=== PATIENT | female | born 1975 | race Caucasian/White ===

== ENCOUNTER 2016-11-13 17:06 | Emergency (ER) | payer MEDICAID ==
--- NOTE | 2016-11-13 18:06 | EDM.PDOC ---
ED HPI ENT - General Chief Complaint: ENT Problem Stated Complaint: MOUTH PAIN Time Seen by Provider: 11/13/16 17:40 Source of Information: Reports: Patient, RN, RN notes reviewed History Limitations: Reports: No limitations - History of Present Illness INITIAL COMMENTS - FREE TEXT/NARRATIVE: Patient complains of right lower dental pain x2-3 days getting worse. Today woke with swelling to the right face. Denies fever. History of chronic severe dental decay. Timing/Duration: Reports: Getting worse Severity: severe Location: Reports: mouth (face) Quality: Reports: Ache, Throbbing Improves with: Reports: None Worsens with: Reports: None Associated Symptoms: Reports: no other symptoms - Related Data Allergies/ADRs: Allergies Allergy/AdvReac Type Severity Reaction Status Date / Time No Known Allergies Allergy Verified 10/08/16 10:42 Home Meds: Home Meds Ferrous Sulfate 324 mg PO DAILY 10/08/16 [History] Gabapentin [Neurontin] 800 mg PO TID 10/08/16 [History] Mirtazapine [Mirtazapine] 30 mg PO BEDTIME 10/08/16 [History] buPROPion HCl [buPROPion HCl ER] 200 mg PO BID 10/08/16 [History] oxyCODONE HCl/Acetaminophen [oxyCODONE-Acetaminophen 5-325] 1 tab PO Q6HR PRN [History] Past Medical History - Past Health History Medical/Surgical History: Denies Medical/Surgical History HEENT 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: None Cardiovascular 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: None Respiratory 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: None Gastrointestinal 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: None Genitourinary 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: None 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: Musculoskeletal 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: Other (see below) Other Musculoskeletal History: herniated disk Neurological 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: Seizure (Onset January 2016) Psychiatric 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: Addiction, Depression Endocrine/Metabolic 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: None Hematologic 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: None Immunologic 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: None Oncologic (Cancer) 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: Cervix Dermatologic 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: None - Infectious Disease History Infectious Disease 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: Chicken pox - Past Surgical History Musculoskeletal Surgical 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: Other (see below) (Lumbar surgery) Social & Family History - Family History Family Medical History: Noncontributory Neurological: Reports: Seizure (grandmother) - Tobacco Use Smoking Status *Q: Current Every Day Smoker Years of Tobacco use: 20 Packs/Tins Daily: 0.5 - Caffeine Use Caffeine Use: Reports: Coffee, Soda - Recreational Drug Use Recreational Drug Use: Yes Recreational Drug Use Frequency: Patient Refuses To Answer Recreational Drug Last Use: History of IV drug use - Sexual History Sexual 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: Sexually active - Living Situation & Occupation Living situation: Reports: with significant other Occupation: unemployed ED ROS ENT - Review of Systems Review Of Systems: ROS reveals no pertinent complaints other than HPI. ED EXAM, ENT - Physical Exam Exam: See Below Exam Limited By: No limitations General Appearance: alert, WD/WN, no apparent distress Eye Exam: bilateral eye: normal inspection Ears: normal external exam, normal canal, hearing grossly normal, normal TMs Nose: normal inspection, normal mucousa, no blood Mouth/Throat: Other (Exterior dental decay and missing teeth. Swelling to gums at right mandibular molars without purulent drainage. ) Head: facial swelling (right mandible o infraorbital region with mild erythema, tenderness and increased warmth. ) Neck: lymphadenopathy (R) (cervical.) Neurological: alert, oriented, CN II-XII intact, normal cognition, normal gait, normal reflexes, no motor/sensory deficits Psychiatric: normal affect Course - Vital Signs Last Recorded V/S: See nurses notes for vitals. Departure - Departure Time of Disposition: 18:04 Disposition: Home, Self-Care 01 Condition: good Clinical Impression: Dental abscess, Facial cellulitis Instructions: Dental Abscess, [id number] Forms: ED Department Discharge Additional Instructions: Clindamycin 300mg. Amoxicillin 500mg. Viscus lidocaine 2%. [place] 5mg/325mg. Follow up with dentist tomorrow.
== END 2016-11-13 18:00 | disposition home or self-care (01) ==
LOC: DL.ED 17:06
CPT/HCPCS: 99283

== ENCOUNTER 2017-01-03 21:51 | Emergency (ER) | payer MEDICAID ==
--- NOTE | 2017-01-04 00:26 | EDM.PDOC ---
ED HPI GENERAL MEDICAL PROBLEM - General Chief Complaint: General Stated Complaint: FOOT AND CHEST PAIN Time Seen by Provider: 01/03/17 22:30 Source of Information: Reports: Patient History Limitations: Reports: No limitations - History of Present Illness INITIAL COMMENTS - FREE TEXT/NARRATIVE: c/o pain to right great toe and heel. Hx surgery [address] Villalta. Notes change in drainage more yellow and pain worse, Admits is out of Percocet. Rx should have good through 01/05. 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 Mid-Sternal Chest Pain Score (Numeric/FACES): 3 - Related Data Allergies Allergy/AdvReac Type Severity Reaction Status Date / Time No Known Allergies Allergy Verified 01/03/17 22:20 Home Meds: Home Meds Ferrous Sulfate 324 mg PO DAILY 10/08/16 [History] Gabapentin [Neurontin] 800 mg PO TID 10/08/16 [History] Mirtazapine [Mirtazapine] 30 mg PO BEDTIME 10/08/16 [History] buPROPion HCl [buPROPion HCl ER] 200 mg PO BID 10/08/16 [History] oxyCODONE HCl/Acetaminophen [oxyCODONE-Acetaminophen 5-325] 1 tab PO Q6HR PRN [History] Past Medical History - Past Health History Medical/Surgical History: Denies Medical/Surgical History HEENT 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: None Cardiovascular 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: None Respiratory 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: None Gastrointestinal 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: None Genitourinary 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: None 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: Musculoskeletal 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: Other (see below) Other Musculoskeletal History: herniated disk Neurological 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: Seizure Psychiatric 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: Addiction, Depression Endocrine/Metabolic 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: None Hematologic 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: None Immunologic 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: None Oncologic (Cancer) 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: Cervix Dermatologic 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: None - Infectious Disease History Infectious Disease 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: Chicken pox - Past Surgical History Head Surgeries/Procedures: Reports: None Musculoskeletal Surgical 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: Other (see below) Other Musculoskeletal Surgeries/Procedures:: right foot surgery Social & Family History - Family History Family Medical History: Noncontributory Neurological: Reports: Seizure - Tobacco Use Smoking Status *Q: Current Every Day Smoker Years of Tobacco use: 20 Packs/Tins Daily: 2 - Caffeine Use Caffeine Use: Reports: Coffee, Soda, Tea - Recreational Drug Use Recreational Drug Use: No Recreational Drug Use Frequency: Patient Refuses To Answer Recreational Drug Last Use: History of IV drug use - Sexual History Sexual 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: Sexually active - Living Situation & Occupation Living situation: Reports: with significant other Occupation: unemployed ED ROS GENERAL - Review of Systems Review Of Systems: See Below Constitutional: Reports: fever (last night) Musculoskeletal: Reports: foot pain Skin: Reports: wound (ankle), change in color (redness) ED EXAM, GENERAL - Physical Exam Exam: See Below Exam Limited By: No limitations General Appearance: alert, mild distress Eye Exam: bilateral eye: PERRL Ears: normal external exam Nose: normal inspection Throat/Mouth: Normal inspection Head: atraumatic, normocephalic Respiratory/Chest: no respiratory distress, lungs clear, other (upper chest wall tenderness with palpation) Cardiovascular: normal peripheral pulses, regular rate, rhythm GI/Abdominal: normal bowel sounds, soft, no distention, other (mild epigastric tenderness) Back Exam: normal inspection, full range of motion Extremities: redness (at incision sites of lateral right heel and dorsal great toe.) Neurological: alert, oriented Psychiatric: normal affect, normal mood Skin Exam: Warm, Dry, Erythema (surgical wound), Wound/incision (surgical wound) Course - Vital Signs Last Recorded V/S: Last Vital Signs Temp 99.2 F 01/04/17 00:52 Pulse 86 01/04/17 00:52 Resp 18 01/04/17 00:52 BP 153/78 H 01/04/17 00:52 Pulse Ox 99 01/04/17 00:52 - Orders/Labs/Meds Labs: Laboratory Tests 01/04/17 01/04/17 Range/Units 00:10 00:10 WBC 7.7 (5.0-10.0) 10^3/uL RBC 3.87 L (4.2-5.4) 10^6/uL Hgb 11.3 L (12.0-16.0) g/dL Hct 35.2 L (37.0-47.0) % MCV 91.0 (80-100) fL MCH 29.2 (27.0-34.0) pg MCHC 32.1 L (33.0-35.0) g/dL Plt Count 340 (150-450) 10^3/uL Neut % (Auto) 46.2 (42.2-75.2) % Lymph % (Auto) 33.9 (20.5-50.1) % [place] % (Auto) 13.1 H (2-8) % Eos % (Auto) 6.5 H (1.0-3.0) % Baso % (Auto) 0.3 (0.0-1.0) % Sodium 139 (135-145) mmol/L Potassium 3.7 (3.6-5.0) mmol/L Chloride 109 (101-111) mmol/L Carbon Dioxide 26.0 (21.0-31.0) mmol/L Anion Gap 7.7 BUN 9 (7-18) mg/dL Creatinine 0.7 (0.6-1.3) mg/dL Est Cr Clr Drug Dosing 101.81 mL/min Estimated GFR (MDRD) > 60 BUN/Creatinine Ratio 12.85 Glucose 113 H (74-105) mg/dL Calcium 8.1 L (8.4-10.2) mg/dl Total Bilirubin 0.3 (0.2-1.0) mg/dL AST 45 H (10-42) IU/L ALT 37 (10-60) IU/L Alkaline Phosphatase 88 (42-121) IU/L Total Protein 6.6 L (6.7-8.2) g/dl Albumin 3.2 (3.2-5.5) g/dl Globulin 3.4 Albumin/Globulin Ratio 0.94 Meds: Medications Discontinued Medications Generic Name Dose Route Start Last Admin Trade Name Freq PRN Reason Stop Dose Admin Bacitracin 1 dose 01/04/17 00:28 01/04/17 00:33 Bacitracin Oint 1 Gm TOP 01/04/17 00:29 1 dose ONETIME ONE Administration Clindamycin HCl Confirm 01/04/17 00:45 01/04/17 00:55 Cleocin Administered 01/04/17 00:46 Not Given Dose 600 mg .ROUTE .STK-MED ONE Clindamycin HCl 600 mg 01/04/17 00:45 Cleocin PO 01/04/17 00:46 .STK-MED ONE Oxycodone/Acetaminophen Confirm 01/04/17 00:45 01/04/17 00:55 Percocet 325-5 Mg Administered 01/04/17 00:46 Not Given Dose 2 tab .ROUTE .STK-MED ONE Oxycodone/Acetaminophen 2 tab 01/04/17 00:45 Percocet 325-5 Mg PO 01/04/17 00:46 .STK-MED ONE Departure - Departure Time of Disposition: 00:42 Disposition: Home, Self-Care 01 Condition: good Clinical Impression: Post-op pain, History of bunionectomy of right great toe Instructions: Wound Infection, [id number] Referrals: Terrance Acevedo MD [Primary Care Provider] - Forms: ED Department Discharge Additional Instructions: Follow up with Dr. Villalta in am Percocet 5/325 one every 6 hours as needed for pain #2 Clindaymycin 150mg 2 4 times daily for one week elevate no weight bearing on right until seen in follow up by surgeon dressing change twice daily may alternate tylenol and ibuprofen for discomfort
[2017-01-04] MEDS ORDERED: Bacitracin Oint 1 GM U/D Packet TOP ONE (00:28)
[2017-01-04 00:35] LABS: CHLORIDE,CL 109 mmol/L (101-111); SODIUM,NA 139 mmol/L (135-145)
[2017-01-04] MEDS ORDERED: Acetaminophen/oxyCODONE 325-5 MG Tab ONE (00:45)
[2017-01-04] MEDS ORDERED: Clindamycin HCl 150 MG Cap ONE (00:45)
[2017-01-04] MEDS ORDERED: Acetaminophen/oxyCODONE 325-5 MG Tab PO ONE (00:45)
[2017-01-04] MEDS ORDERED: Clindamycin HCl 150 MG Cap PO ONE (00:45)
[2017-01-04 00:53] VITALS: BP 153/78
--- NOTE | 2017-01-04 21:59 | EKG ---
01/03/2017 - YADIRA AKHTAR - This 12-lead EKG shows a normal sinus rhythm with a ventricular rate of 78. Normal axis with borderline left axis deviation. Normal intervals. No acute ST- segment or T-wave changes. [facility] /[id number]
== END 2017-01-04 00:57 | disposition home or self-care (01) ==
LOC: DL.ED 21:51
DX: G89.18 Other acute postprocedural pain (principal); G40.909 Epilepsy, unspecified, not intractable, without status epilepticus; F32.9 Major depressive disorder, single episode, unspecified; F17.200 Nicotine dependence, unspecified, uncomplicated; Z79.899 Other long term (current) drug therapy
CPT/HCPCS: 36415; 73620-RT; 80053; 85025; 87070; 87077; 87186; 93005; 99285; A9270-GY

== ENCOUNTER 2017-05-20 14:08 | Emergency (ER) | payer MEDICAID ==
[2017-05-20 14:46] VITALS: BP 135/78
--- NOTE | 2017-05-20 15:17 | EDM.PDOC ---
ED HPI GENERAL MEDICAL PROBLEM - General Chief Complaint: General Stated Complaint: INFECTION IN MOUTH Time Seen by Provider: 05/20/17 15:13 Source of Information: Reports: Patient, RN, RN Notes Reviewed History Limitations: Reports: No Limitations - History of Present Illness INITIAL COMMENTS - FREE TEXT/NARRATIVE: Patient presents to ER with dental infection. She states she was seen by the dentist 3 days ago. SHe was prescribed antibiotics as well as pain medications by the dentist, which she states she has been taking. She denies fever, chills, or any further symptoms. 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 Oral/Mouth Pain Score (Numeric/FACES): 5 - Related Data Allergies Allergy/AdvReac Type Severity Reaction Status Date / Time No Known Allergies Allergy Verified 05/20/17 14:46 Home Meds: Home Meds Ferrous Sulfate 324 mg PO DAILY 10/08/16 [History] Gabapentin [Neurontin] 800 mg PO TID 10/08/16 [History] buPROPion HCl [buPROPion HCl ER] 450 mg PO DAILY 10/08/16 [History] Amoxicillin [Amoxicillin] 500 mg PO TID 05/20/17 [History] traMADol HCl [Tramadol HCl] 50 mg PO ASDIRECTED PRN 05/20/17 [History] Past Medical History - Past Health History Medical/Surgical History: Denies Medical/Surgical History HEENT 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: None Cardiovascular 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: None Respiratory 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: None Gastrointestinal 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: None Genitourinary 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: None 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: Musculoskeletal 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: Other (See Below) Other Musculoskeletal History: herniated disk Neurological 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: Seizure Psychiatric 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: Addiction, Depression Endocrine/Metabolic 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: None Hematologic 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: None Immunologic 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: None Oncologic (Cancer) 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: Cervix Dermatologic 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: None - Infectious Disease History Infectious Disease 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: Chicken Pox - Past Surgical History Head Surgeries/Procedures: Reports: None Musculoskeletal Surgical 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: Other (See Below) Social & Family History - Family History Family Medical History: Noncontributory Neurological: Reports: Seizure - Tobacco Use Smoking Status *Q: Current Every Day Smoker Years of Tobacco use: 20 Packs/Tins Daily: 0.5 Second Hand Smoke Exposure: No - Caffeine Use Caffeine Use: Reports: Soda - Recreational Drug Use Recreational Drug Use: No Recreational Drug Use Frequency: Patient Refuses To Answer Recreational Drug Last Use: History of IV drug use - Sexual History Sexual 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: Sexually Active - Living Situation & Occupation Living situation: Reports: with Significant Other Occupation: Unemployed ED ROS GENERAL - Review of Systems Review Of Systems: ROS reveals no pertinent complaints other than HPI. ED EXAM, GENERAL - Physical Exam Exam: See Below Exam Limited By: No Limitations General Appearance: Alert, WD/WN, No Apparent Distress Throat/Mouth: Other (Reddened, erythematous gums (upper and lower). Yellow/ white drainage on bottom right gums.) Head: Atraumatic, Normocephalic Neck: Normal Inspection, Supple, Non-Tender, Full Range of Motion Respiratory/Chest: No Respiratory Distress, Lungs Clear, Normal Breath Sounds, No Accessory Muscle Use, Chest Non-Tender Cardiovascular: Normal Peripheral Pulses, Regular Rate, Rhythm, No Edema, No Gallop, No JVD, No Murmur, No Rub GI/Abdominal: Normal Bowel Sounds, Soft, Non-Tender, No Organomegaly, No Distention, No Abnormal Bruit, No Mass (Female) Exam: Deferred Rectal (Female) Exam: Deferred Back Exam: Normal Inspection, Full Range of Motion, NT Extremities: Normal Inspection, Normal Range of Motion, Non-Tender, Normal Capillary Refill, No Pedal Edema Neurological: Alert, Oriented, CN II-XII Intact, Normal Cognition, Normal Gait, Normal Reflexes, No Motor/Sensory Deficits Psychiatric: Normal Affect, Normal Mood Skin Exam: Warm, Dry, Intact, Normal Color, No Rash Lymphatic: No Adenopathy Course - Vital Signs Last Recorded V/S: Last Vital Signs Temp 97.8 F 05/20/17 14:40 Pulse 77 05/20/17 14:40 Resp 16 05/20/17 14:40 BP 135/78 05/20/17 14:40 Pulse Ox 100 05/20/17 14:40 - Re-Assessments/Exams Free Text/Narrative Re-Assessment/Exam: It was explained to the patient that she was prescribed antibiotics and pain medications by her dentist 3 days ago. Therefore I cannot order her any more pain medications. She was instructed to take the antibiotics as prescribed and finish the course. She is to follow up with her dentist this week. Departure - Departure Time of Disposition: 15:16 Disposition: Home, Self-Care 01 Condition: Good Clinical Impression: Dental infection - Discharge Information Instructions: Dental Abscess, [id number] Forms: ED Department Discharge Additional Instructions: Take medications already prescribed as ordered. Follow up with your dentist.
== END 2017-05-20 15:22 | disposition home or self-care (01) ==
LOC: DL.ED 14:08
DX: K04.7 Periapical abscess without sinus (principal); F32.9 Major depressive disorder, single episode, unspecified; F17.210 Nicotine dependence, cigarettes, uncomplicated; Z85.41 Personal history of malignant neoplasm of cervix uteri; Z79.899 Other long term (current) drug therapy
CPT/HCPCS: 99283

== ENCOUNTER 2017-06-14 00:13 | Emergency (ER) | payer MEDICAID ==
[2017-06-14 00:37] VITALS: BP 154/93
[2017-06-14] MEDS ORDERED: GI Cocktail Oral Solution 30 ML PO ONE (01:42)
[2017-06-14 01:44] LABS: CHLORIDE,CL 104 mmol/L (101-111); SODIUM,NA 139 mmol/L (135-145)
[2017-06-14] MEDS ORDERED: Famotidine 20 MG/2 ML SDV IVPUSH ONE (01:55)
[2017-06-14] MEDS ORDERED: Ketorolac 30 MG/ML SDV IVPUSH ONE (02:32)
--- NOTE | 2017-06-14 02:32 | EDM.PDOC ---
ED HPI GENERAL MEDICAL PROBLEM - General Chief Complaint: Chest Pain Stated Complaint: AMBULANCE CHEST PAIN Time Seen by Provider: 06/14/17 00:15 Source of Information: Reports: Patient, EMS History Limitations: Reports: No Limitations - History of Present Illness INITIAL COMMENTS - FREE TEXT/NARRATIVE: ED via [facility] with c/o of chest pain. EMS report patient drove to ambulance bay with c/o of pain intermittently over past 3 days. No sweating , nausea or vomiting. Had tried ibuprofen earlier for apin. Pain reported to be worse today. Aspirin given by EMS. EKG no acute findings. Nitro given without change in pain. 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 Mid-Sternal Chest Pain Score (Numeric/FACES): 6 - Related Data Allergies Allergy/AdvReac Type Severity Reaction Status Date / Time No Known Allergies Allergy Verified 06/14/17 00:33 Home Meds: Home Meds Ferrous Sulfate 324 mg PO DAILY 10/08/16 [History] Gabapentin [Neurontin] 800 mg PO TID 10/08/16 [History] buPROPion HCl [buPROPion HCl ER] 450 mg PO DAILY 10/08/16 [History] Amoxicillin [Amoxicillin] 500 mg PO TID 05/20/17 [History] traMADol HCl [Tramadol HCl] 50 mg PO ASDIRECTED PRN 05/20/17 [History] Past Medical History - Past Health History Medical/Surgical History: Denies Medical/Surgical History HEENT 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: None Cardiovascular 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: None Respiratory 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: None Gastrointestinal 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: None Genitourinary 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: None 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: Musculoskeletal 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: Other (See Below) Other Musculoskeletal History: herniated disk Neurological 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: Seizure Psychiatric 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: Addiction, Depression Endocrine/Metabolic 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: None Hematologic 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: None Immunologic 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: None Oncologic (Cancer) 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: Cervix Dermatologic 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: None - Infectious Disease History Infectious Disease 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: Chicken Pox - Past Surgical History Head Surgeries/Procedures: Reports: None Musculoskeletal Surgical 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: Other (See Below) Social & Family History - Family History Family Medical History: Noncontributory Neurological: Reports: Seizure - Tobacco Use Smoking Status *Q: Current Every Day Smoker Years of Tobacco use: 20 Packs/Tins Daily: 5 Second Hand Smoke Exposure: Yes - Caffeine Use Caffeine Use: Reports: Coffee, Soda, Tea - Recreational Drug Use Recreational Drug Use: No Recreational Drug Use Frequency: Patient Refuses To Answer Recreational Drug Last Use: History of IV drug use - Sexual History Sexual 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: Sexually Active - Living Situation & Occupation Living situation: Reports: with Significant Other Occupation: Unemployed ED ROS GENERAL - Review of Systems Review Of Systems: See Below Constitutional: Reports: No Symptoms HEENT: Reports: No Symptoms Respiratory: Denies: Shortness of Breath, Wheezing, Cough Cardiovascular: Reports: Chest Pain. Denies: Dyspnea on Exertion, Palpitations Endocrine: Reports: No Symptoms GI/Abdominal: Reports: No Symptoms : Reports: No Symptoms Musculoskeletal: Reports: No Symptoms Skin: Reports: No Symptoms Neurological: Reports: Seizure (hx) Psychiatric: Reports: No Symptoms ED EXAM, GENERAL - Physical Exam Exam: See Below Exam Limited By: No Limitations General Appearance: Alert, Anxious Eye Exam: Bilateral Eye: EOMI Ears: Normal External Exam Nose: Normal Inspection Throat/Mouth: Other (poor dentation) Head: Atraumatic, Normocephalic Neck: Normal Inspection. No: Lymphadenopathy (L), Lymphadenopathy (R) Respiratory/Chest: No Respiratory Distress, Lungs Clear, Normal Breath Sounds, Other (tenderness with palpation andterio upper chest) Cardiovascular: Normal Peripheral Pulses, Regular Rate, Rhythm, No Edema GI/Abdominal: Soft, Tender (epigastric) Back Exam: Normal Inspection. No: CVA Tenderness (L), CVA Tenderness (R) Extremities: Normal Inspection Neurological: Alert, Oriented Psychiatric: Anxious Skin Exam: Warm, Dry, Intact, Normal Color EKG INTERPRETATION Rhythm: NSR Course - Vital Signs Last Recorded V/S: Last Vital Signs Temp 97.8 F 06/14/17 00:36 Pulse 73 06/14/17 00:36 Resp 15 06/14/17 00:36 BP 154/93 H 06/14/17 00:36 Pulse Ox 100 06/14/17 00:36 - Orders/Labs/Meds Orders: Active Orders 24 hr Category Date Time Status EKG 12 Lead [EKG Documentation Completion] [RC] URGENT Care 06/14/17 01:09 Active Chest 1V Frontal [CR] Urgent Exams 06/14/17 01:08 Taken Labs: Laboratory Tests 06/14/17 06/14/17 06/14/17 Range/Units 01:12 01:12 01:16 WBC 7.8 (5.0-10.0) 10^3/uL RBC 4.12 L (4.2-5.4) 10^6/uL Hgb 12.0 (12.0-16.0) g/dL Hct 38.0 (37.0-47.0) % MCV 92.2 (80-100) fL MCH 29.1 (27.0-34.0) pg MCHC 31.6 L (33.0-35.0) g/dL Plt Count 333 (150-450) 10^3/uL Neut % (Auto) 45.5 (42.2-75.2) % Lymph % (Auto) 35.3 (20.5-50.1) % [place] % (Auto) 15.3 H (2-8) % Eos % (Auto) 3.6 H (1.0-3.0) % Baso % (Auto) 0.3 (0.0-1.0) % PT (9.0-12.0) SEC INR (0.9-1.2) D-Dimer, Quantitative (0-400) ng/mL Sodium (135-145) mmol/L Potassium (3.6-5.0) mmol/L Chloride (101-111) mmol/L Carbon Dioxide (21.0-31.0) mmol/L Anion Gap BUN (7-18) mg/dL Creatinine (0.6-1.3) mg/dL Est Cr Clr Drug Dosing Estimated GFR (MDRD) BUN/Creatinine Ratio Glucose (74-105) mg/dL Calcium (8.4-10.2) mg/dl Total Bilirubin (0.2-1.0) mg/dL AST (10-42) IU/L ALT (10-60) IU/L Alkaline Phosphatase (42-121) IU/L Troponin I (0.00-0.02) ng/ml Total Protein (6.7-8.2) g/dl Albumin (3.2-5.5) g/dl Globulin Albumin/Globulin Ratio Amylase (28-100) U/L Lipase (22-51) U/L Urine Color Yellow (YELLOW) Urine Appearance Clear (CLEAR) Urine pH 6.5 (5.0-9.0) Ur Specific [place] 1.010 (1.005-1.030) Urine Protein Negative (NEGATIVE) Urine Glucose (UA) Negative (NEGATIVE) Urine Ketones Negative (NEGATIVE) Urine Occult Blood Negative (NEGATIVE) Urine Nitrite Negative (NEGATIVE) Urine Bilirubin Negative (NEGATIVE) Urine Urobilinogen 0.2 (0.2-1.0) mg/dL Ur Leukocyte Esterase Negative (NEGATIVE) Urine RBC 0-5 /HPF Urine WBC 0-5 (0-5/HPF) /HPF Ur Epithelial Cells Few /HPF Urine Bacteria Few (0-FEW/HPF) /HPF Urine Opiates Screen Positive H (NEGATIVE) Ur Oxycodone Screen Positive H (NEGATIVE) Urine Methadone Screen Negative (NEGATIVE) Ur Barbiturates Screen Negative (NEGATIVE) U Tricyclic Antidepress Negative (NEGATIVE) Ur Phencyclidine Scrn Negative (NEGATIVE) Ur Amphetamine Screen Negative (NEGATIVE) U Methamphetamines Scrn Positive H (NEGATIVE) Urine MDMA Screen Negative (NEGATIVE) U Benzodiazepines Scrn Negative (NEGATIVE) Urine Cocaine Screen Negative (NEGATIVE) U Marijuana (THC) Screen Negative (NEGATIVE) Ethyl Alcohol mg/dL 06/14/17 06/14/17 06/14/17 Range/Units 01:16 01:16 01:16 WBC (5.0-10.0) 10^3/uL RBC (4.2-5.4) 10^6/uL Hgb (12.0-16.0) g/dL Hct (37.0-47.0) % MCV (80-100) fL MCH (27.0-34.0) pg MCHC (33.0-35.0) g/dL Plt Count (150-450) 10^3/uL Neut % (Auto) (42.2-75.2) % Lymph % (Auto) (20.5-50.1) % [place] % (Auto) (2-8) % Eos % (Auto) (1.0-3.0) % Baso % (Auto) (0.0-1.0) % PT 8.5 L (9.0-12.0) SEC INR 0.8 L (0.9-1.2) D-Dimer, Quantitative 134 (0-400) ng/mL Sodium 139 (135-145) mmol/L Potassium 4.4 (3.6-5.0) mmol/L Chloride 104 (101-111) mmol/L Carbon Dioxide 28.0 (21.0-31.0) mmol/L Anion Gap 11.4 BUN 10 (7-18) mg/dL Creatinine 0.9 (0.6-1.3) mg/dL Est Cr Clr Drug Dosing TNP Estimated GFR (MDRD) > 60 BUN/Creatinine Ratio 11.11 Glucose 105 (74-105) mg/dL Calcium 9.0 (8.4-10.2) mg/dl Total Bilirubin 0.2 (0.2-1.0) mg/dL AST 37 (10-42) IU/L ALT 36 (10-60) IU/L Alkaline Phosphatase 76 (42-121) IU/L Troponin I < 0.02 (0.00-0.02) ng/ml Total Protein 7.5 (6.7-8.2) g/dl Albumin 4.1 (3.2-5.5) g/dl Globulin 3.4 Albumin/Globulin Ratio 1.21 Amylase 60 (28-100) U/L Lipase 33 (22-51) U/L Urine Color (YELLOW) Urine Appearance (CLEAR) Urine pH (5.0-9.0) Ur Specific [place] (1.005-1.030) Urine Protein (NEGATIVE) Urine Glucose (UA) (NEGATIVE) Urine Ketones (NEGATIVE) Urine Occult Blood (NEGATIVE) Urine Nitrite (NEGATIVE) Urine Bilirubin (NEGATIVE) Urine Urobilinogen (0.2-1.0) mg/dL Ur Leukocyte Esterase (NEGATIVE) Urine RBC /HPF Urine WBC (0-5/HPF) /HPF Ur Epithelial Cells /HPF Urine Bacteria (0-FEW/HPF) /HPF Urine Opiates Screen (NEGATIVE) Ur Oxycodone Screen (NEGATIVE) Urine Methadone Screen (NEGATIVE) Ur Barbiturates Screen (NEGATIVE) U Tricyclic Antidepress (NEGATIVE) Ur Phencyclidine Scrn (NEGATIVE) Ur Amphetamine Screen (NEGATIVE) U Methamphetamines Scrn (NEGATIVE) Urine MDMA Screen (NEGATIVE) U Benzodiazepines Scrn (NEGATIVE) Urine Cocaine Screen (NEGATIVE) U Marijuana (THC) Screen (NEGATIVE) Ethyl Alcohol < 5 mg/dL Meds: Medications Discontinued Medications Generic Name Dose Route Start Last Admin Trade Name Freq PRN Reason Stop Dose Admin Al Hydroxide/Mg Hydroxide 30 ml 06/14/17 01:42 06/14/17 01:52 Gi Cocktail PO 06/14/17 01:43 30 ml ONETIME ONE Administration Famotidine 20 mg 06/14/17 01:55 06/14/17 02:04 Pepcid IVPUSH 06/14/17 01:56 20 mg ONETIME ONE Administration Ketorolac Tromethamine 30 mg 06/14/17 02:32 06/14/17 02:37 Toradol IVPUSH 06/14/17 02:33 30 mg ONETIME ONE Administration - Radiology Interpretation Free Text/Narrative:: CXR negative - Re-Assessments/Exams Free Text/Narrative Re-Assessment/Exam: 0200- Admitted to tobacco use , initially denied drug or alcohol use. Questioned regarding positive UA results. Admitted to usage yesterday and 3 days prior. 0300 reports pain improving following toradol. 06/14/17 03:53 Departure - Departure Time of Disposition: 03:11 Disposition: Home, Self-Care 01 Condition: Good Clinical Impression: Non-cardiac chest pain, Drug abuse Forms: ED Department Discharge Additional Instructions: bland diet ibuprofen 600mg every 8 hours as needed take with food follow up with primary care provider - My Orders Last 24 Hours: My Active Orders 06/14/17 01:08 Chest 1V Frontal [CR] Urgent 06/14/17 01:09 EKG 12 Lead [EKG Documentation Completion] [RC] URGENT - Assessment/Plan Last 24 Hours: My Active Orders 06/14/17 01:08 Chest 1V Frontal [CR] Urgent 06/14/17 01:09 EKG 12 Lead [EKG Documentation Completion] [RC] URGENT
--- NOTE | 2017-06-16 11:28 | EKG ---
06/14/2017 - YADIRA AKHTAR - This 12-lead EKG shows normal sinus rhythm with heart rate of 76. No significant ST elevation or ST depression noted on this 12-lead EKG. Nonspecific ST-T wave changes noted on lead aVR and aVL. [facility] /[id number]
== END 2017-06-14 03:34 | disposition home or self-care (01) ==
LOC: DL.ED 00:13
DX: R07.89 Other chest pain (principal); F19.10 Other psychoactive substance abuse, uncomplicated; F17.210 Nicotine dependence, cigarettes, uncomplicated; Z79.899 Other long term (current) drug therapy
CPT/HCPCS: 36415; 71010; 80053; 80305; 81001; 82150; 83690; 84484; 85025; 85379; 85610; 93005; 96374; 96375; 99285; A9270; G0480; J1885; S0028

== ENCOUNTER 2017-08-16 19:46 | Emergency (ER) | payer MEDICAID | END 2017-08-16 19:49 | disposition left against medical advice (07) | LOC: DL.ED 19:46 | DX: Z53.21 Procedure and treatment not carried out due to patient leaving prior to being seen by health care provider (principal) ==

== ENCOUNTER 2017-08-21 10:26 | Emergency (ER) | payer MEDICAID ==
[2017-08-21 10:42] VITALS: BP 124/82
[2017-08-21] MEDS ORDERED: Sodium Chloride 0.9% 1,000 ML IV ONE (10:48)
--- NOTE | 2017-08-21 11:12 | EDM.PDOC ---
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 The patient reports she had a hysterectomy by Dr. Milian in [place] on 08/10/17. The patient had a follow-up appointment with Dr. Milian on either last (08/16/17) or Sunday (08/17/17) due to a small amount of vaginal bleeding. The patient reports when she woke up this morning she noticed a "large amount" of blood in her bed. Since she woke up, the patient reports she has filled a pad in about 2 hours. The patient reports she started to feel nauseated yesterday, has had increased shortness of breath starting yesterday and has had increased abdominal pain over the past couple of days. The patient reports she did not call Dr. Milian today, but previously was instructed to come to the ED if she had increased vaginal bleeding. Today, the patient also reports her vision gets blurry when she sits up in bed. Onset: Today Duration: Constant Location: Reports: Generalized Quality: Reports: Other Severity: Severe Improves with: Reports: None Worsens with: Reports: None Associated Symptoms: Reports: Nausea/Vomiting, Shortness of Breath, Other ( abdominal pain and vaginal bleeding) Lower Abdomen Pain Score (Numeric/FACES): 5 - Related Data Allergies Allergy/AdvReac Type Severity Reaction Status Date / Time cephalexin [From Keflex] Allergy Hives Verified 08/21/17 10:45 Home Meds: Home Meds Ferrous Sulfate 324 mg PO DAILY 10/08/16 [History] Gabapentin [Neurontin] 800 mg PO TID 10/08/16 [History] buPROPion HCl [buPROPion HCl ER] 450 mg PO DAILY 10/08/16 [History] Amoxicillin [Amoxicillin] 500 mg PO TID 05/20/17 [History] traMADol HCl [Tramadol HCl] 50 mg PO ASDIRECTED PRN 05/20/17 [History] Past Medical History - Past Health History Medical/Surgical History: Denies Medical/Surgical History HEENT 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: None Cardiovascular 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: None Respiratory 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: None Gastrointestinal 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: None Genitourinary 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: None 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: Musculoskeletal 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: Other (See Below) Other Musculoskeletal History: herniated disk Neurological 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: Seizure Psychiatric 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: Addiction, Depression Endocrine/Metabolic 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: None Hematologic 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: None Immunologic 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: None Oncologic (Cancer) 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: Cervix Dermatologic 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: None - Infectious Disease History Infectious Disease 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: Chicken Pox - Past Surgical History Head Surgeries/Procedures: Reports: None Female Surgical 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: Hysterectomy Musculoskeletal Surgical 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: Other (See Below) Other Musculoskeletal Surgeries/Procedures:: surgery on both feet Social & Family History - Family History Family Medical History: Noncontributory Neurological: Reports: Seizure - Tobacco Use Smoking Status *Q: Current Every Day Smoker Years of Tobacco use: 20 Packs/Tins Daily: 0.4 Second Hand Smoke Exposure: Yes - Caffeine Use Caffeine Use: Reports: Coffee, Soda, Tea - Recreational Drug Use Recreational Drug Use: No Recreational Drug Use Frequency: Patient Refuses To Answer Recreational Drug Last Use: History of IV drug use - Sexual History Sexual 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: Sexually Active - Living Situation & Occupation Living situation: Reports: with Significant Other Occupation: Unemployed ED ROS GENERAL - Review of Systems Review Of Systems: ROS reveals no pertinent complaints other than HPI. ED EXAM, GI/ABD - Physical Exam Exam: See Below Exam Limited By: No Limitations General Appearance: Alert, WD/WN, Moderate Distress Eyes: Bilateral: Normal Appearance, EOMI Ears: Normal External Exam, Normal Canal, Hearing Grossly Normal, Normal TMs Nose: Normal Inspection, Normal Mucosa, No Blood Throat/Mouth: Normal Inspection, Normal Lips, Normal Teeth, Normal Gums, Normal Oropharynx, Normal Voice, No Airway Compromise Head: Atraumatic, Normocephalic Neck: Normal Inspection, Supple, Non-Tender, Full Range of Motion Respiratory/Chest: No Respiratory Distress, Lungs Clear, Normal Breath Sounds, No Accessory Muscle Use, Chest Non-Tender Cardiovascular: Normal Peripheral Pulses, Regular Rate, Rhythm, No Edema, No Gallop, No JVD, No Murmur, No Rub GI/Abdominal Exam: Normal Bowel Sounds, Tender (generalized tenderness) (Female) Exam: Normal External Exam, Vaginal Bleeding (minor), Other ( Surgical sutures apparent with mild bleeding from the surgical site. ) Rectal (Female) Exam: Deferred Back Exam: Normal Inspection, Full Range of Motion, NT Extremities: Normal Inspection, Normal Range of Motion, Non-Tender, Normal Capillary Refill, No Pedal Edema Neurological: Alert, Oriented, CN II-XII Intact, Normal Cognition, Normal Gait, Normal Reflexes, No Motor/Sensory Deficits Psychiatric: Normal Affect, Normal Mood Skin Exam: Warm, Dry, Intact, Normal Color, No Rash Lymphatic: No Adenopathy Course - Vital Signs Last Recorded V/S: Last Vital Signs Temp 37.0 C 08/21/17 10:41 Pulse 90 08/21/17 10:41 Resp 16 08/21/17 10:41 BP 124/82 08/21/17 10:41 Pulse Ox 99 08/21/17 10:41 - Orders/Labs/Meds Labs: Laboratory Tests 08/21/17 08/21/17 Range/Units 10:58 10:58 WBC 7.0 (5.0-10.0) 10^3/uL RBC 4.39 (4.2-5.4) 10^6/uL Hgb 12.3 (12.0-16.0) g/dL Hct 38.7 (37.0-47.0) % MCV 88.2 D (80-100) fL MCH 28.0 (27.0-34.0) pg MCHC 31.8 L (33.0-35.0) g/dL Plt Count 358 (150-450) 10^3/uL Neut % (Auto) 41.7 L (42.2-75.2) % Lymph % (Auto) 31.2 (20.5-50.1) % [place] % (Auto) 12.7 H (2-8) % Eos % (Auto) 13.5 H (1.0-3.0) % Baso % (Auto) 0.9 (0.0-1.0) % Add Manual Diff Yes Neutrophils % (Manual) 53 (42-75) % Lymphocytes % (Manual) 27 (20-50) % Monocytes % (Manual) 8 (2-8) % Eosinophils % (Manual) 12 H (1-3) % Target Cells 1+ slight Sodium 139 (135-145) mmol/L Potassium 3.8 (3.6-5.0) mmol/L Chloride 107 (101-111) mmol/L Carbon Dioxide 23.0 (21.0-31.0) mmol/L Anion Gap 12.8 BUN 10 (7-18) mg/dL Creatinine 0.6 (0.6-1.3) mg/dL Est Cr Clr Drug Dosing 118.78 mL/min Estimated GFR (MDRD) > 60 BUN/Creatinine Ratio 16.66 Glucose 97 (74-105) mg/dL Calcium 9.2 (8.4-10.2) mg/dl Total Bilirubin 0.5 (0.2-1.0) mg/dL AST 39 (10-42) IU/L ALT 35 (10-60) IU/L Alkaline Phosphatase 90 (42-121) IU/L Total Protein 7.7 (6.7-8.2) g/dl Albumin 3.9 (3.2-5.5) g/dl Globulin 3.8 Albumin/Globulin Ratio 1.03 Meds: Medications Discontinued Medications Generic Name Dose Route Start Last Admin Trade Name Freq PRN Reason Stop Dose Admin Hydromorphone HCl 1 mg 08/21/17 13:13 Dilaudid IVPUSH 08/21/17 13:14 ONETIME ONE Sodium Chloride 1,000 mls @ 500 mls/hr 08/21/17 10:48 08/21/17 11:06 Normal Saline IV 08/21/17 12:47 500 mls/hr .BOLUS ONE Administration Iopamidol 100 ml 08/21/17 11:47 08/21/17 12:48 Isovue-300 (61%) IVPUSH 08/21/17 11:48 75 ml ONETIME ONE Administration - Re-Assessments/Exams Free Text/Narrative Re-Assessment/Exam: 08/21/17 13:16 Discussed the history, examination, lab, and CT with Dr. Milian today at 1258. Dr. Milian advised to have the patient follow-up with him in 3 weeks or sooner if the patient has any additional symptoms or concerns. Departure - Departure Time of Disposition: 13:19 Disposition: Home, Self-Care 01 Condition: Fair Clinical Impression: Post-op bleeding Qualifiers: Surgical complication system/body Area: genitourinary Procedure type: genitourinary Qualified Code(s): N99.820 - Postprocedural hemorrhage of a genitourinary system organ or structure following a genitourinary system procedure - Discharge Information Instructions: Abdominal Hysterectomy, Care After, [id number] Forms: ED Department Discharge Care Plan Goals: The patient was advised of the examination, lab and CT results with the patient and Dr. Milian. The patient was advised of the conversation with Dr. Milian. The patient was encouraged to continue to monitor her symptoms. The patient should follow-up with Dr. Milian in 3 weeks as scheduled or earlier if additional symptoms should arise. If the patient has any additional symptoms or concerns, the patient should follow-up with her primary care facility, with Dr. Milian or return to the ED.
[2017-08-21 11:31] LABS: CHLORIDE,CL 107 mmol/L (101-111); SODIUM,NA 139 mmol/L (135-145)
[2017-08-21] MEDS ORDERED: Iopamidol 612 MG/ML 100 ML Bottle IVPUSH ONE (11:47)
--- NOTE | 2017-08-21 12:32 | CT ---
CLINICAL HISTORY: 41-year-old 192 pound female smoker with heavy vaginal bleeding this a.m. (signific ant history "vaginal hysterectomy for cervical cancer" 11 days ago on 10 August 2017) and upper abdo yosef pain. SCAN TECHNIQUE: Volume acquisition of data from an emergency CT scan of abdomen and pelvis obtained w ithout oral contrast but during the intravenous infusion 75 cc nonionic Isovue 300 contrast while the patient was lying supine on the Siemens multislice scanner [place], [place]. All data archived in the PACS system for storage, reformatting, study. INTERPRETATION: 1. Surgically absent uterus and neither ovary identified. No sign of pelvic hematoma or abscess. No f oreign bodies. 2. Symmetric distended normal appearing urinary bladder. Normal colon and fluid filled small bowel lo ops lower mid abdomen. Normal appendix RLQ. No sign of mechanical bowel obstruction. No mesenteric or retroperitoneal lymphadenopathy. 3. No inflammatory "dirty" peritoneal fat, ascites or free intraperitoneal air. 4. Gallbladder, liver, stomach, spleen, pancreas and adrenal glands unremarkable. 5. Normal reniform size, axis and configuration. No sign of renal cortical mass lesion, nephrolithias is or obstructive uropathy. 6. Normal cardiac silhouette. Lung bases clear. 7. Normal caliber abdominal aorta. Old anterior compression and marginal spondylosis L3 vertebral bod y. CONCLUSION: Expected postoperative appearance pelvis (no intraperitoneal abnormality).
[2017-08-21] MEDS ORDERED: HYDROmorphone 1 MG/ML Syringe IVPUSH ONE (13:13)
== END 2017-08-21 13:48 | disposition home or self-care (01) ==
LOC: DL.ED 10:26
DX: N99.820 Postprocedural hemorrhage of a genitourinary system organ or structure following a genitourinary system procedure (principal); F17.210 Nicotine dependence, cigarettes, uncomplicated; Z88.1 Allergy status to other antibiotic agents; Z79.899 Other long term (current) drug therapy; Z90.710 Acquired absence of both cervix and uterus
CPT/HCPCS: 36415; 74177; 80053; 85025; 96361; 96374; 99284; J1170; J7030; Q9967

== ENCOUNTER 2018-02-12 18:33 | Emergency (ER) | payer MEDICAID ==
[2018-02-12] MEDS ORDERED: traMADol 50 MG Tab PO ONE ×2 (18:34→20:40)
--- NOTE | 2018-02-12 19:36 | EDM.PDOC ---
ED HPI GENERAL MEDICAL PROBLEM - General Chief Complaint: Abdominal Pain Stated Complaint: [id number] STOMACH PAIN Time Seen by Provider: 02/12/18 19:20 Source of Information: Reports: Patient History Limitations: Reports: No Limitations - History of Present Illness INITIAL COMMENTS - FREE TEXT/NARRATIVE: This 42 yo female patient reports to the ED with upper abdominal pain that has been intermittent for the past 2 days. The patient reports that she has had similar symptoms in the past, but the symptoms did not last this long. The patient reports she has not been seen in the ED or clinic for these symptoms. The patient reports she got nauseated earlier today. The patient's spouse requested pain medications and medications to help her sleep. The patient and spouse were advised of the labs and tests ordered. The patient's spouse requested pain medications 2 additional times during the interview of the patient. Onset Date: 02/10/18 Duration: Getting Worse, Intermittent Location: Reports: Abdomen Quality: Reports: Ache, Dull Severity: Severe Improves with: Reports: None Worsens with: Reports: None Context: Reports: Other Associated Symptoms: Reports: Nausea/Vomiting (x1) Middle Abdominal Pain Score (Numeric/FACES): 7 - Related Data Allergies Allergy/AdvReac Type Severity Reaction Status Date / Time cephalexin [From Keflex] Allergy Hives Verified 02/12/18 18:57 Home Meds: Home Meds Gabapentin [Neurontin] 800 mg PO TID 10/08/16 [History] buPROPion HCl [buPROPion HCl ER] 450 mg PO DAILY 10/08/16 [History] Past Medical History - Past Health History Medical/Surgical History: Denies Medical/Surgical History HEENT 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: None Cardiovascular 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: None Respiratory 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: None Gastrointestinal 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: None Genitourinary 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: None 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: Musculoskeletal 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: Other (See Below) Other Musculoskeletal History: herniated disk Neurological 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: Seizure Psychiatric 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: Addiction, Depression Endocrine/Metabolic 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: None Hematologic 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: None Immunologic 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: None Oncologic (Cancer) 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: Cervix Dermatologic 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: None - Infectious Disease History Infectious Disease 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: Chicken Pox - Past Surgical History Head Surgeries/Procedures: Reports: None Female Surgical 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: Hysterectomy Musculoskeletal Surgical 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: Other (See Below) Other Musculoskeletal Surgeries/Procedures:: surgery on both feet Social & Family History - Family History Family Medical History: Noncontributory Neurological: Reports: Seizure - Tobacco Use Smoking Status *Q: Former Smoker Used Tobacco, but Quit: Yes Month/Year Tobacco Last Used: 2 - Caffeine Use Caffeine Use: Reports: Coffee, Soda - Recreational Drug Use Recreational Drug Use: No - Sexual History Sexual 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: Sexually Active - Living Situation & Occupation Living situation: Reports: with Significant Other Occupation: Unemployed ED ROS GENERAL - Review of Systems Review Of Systems: ROS reveals no pertinent complaints other than HPI. ED EXAM, GI/ABD - Physical Exam Exam: See Below Exam Limited By: No Limitations General Appearance: Alert, WD/WN, Mild Distress Eyes: Bilateral: Normal Appearance, EOMI Ears: Normal External Exam, Normal Canal, Hearing Grossly Normal, Normal TMs Nose: Normal Inspection, Normal Mucosa, No Blood Throat/Mouth: Normal Inspection, Normal Lips, Normal Teeth, Normal Gums, Normal Oropharynx, Normal Voice, No Airway Compromise Head: Atraumatic, Normocephalic Neck: Normal Inspection, Supple, Non-Tender, Full Range of Motion Respiratory/Chest: No Respiratory Distress, Lungs Clear, Normal Breath Sounds, No Accessory Muscle Use, Chest Non-Tender Cardiovascular: Normal Peripheral Pulses, Regular Rate, Rhythm, No Edema, No Gallop, No JVD, No Murmur, No Rub GI/Abdominal Exam: Normal Bowel Sounds, No Organomegaly, No Distention, No Abnormal Bruit, No Mass, Pelvis Stable, Tender (throughout entire upper abdomen) (Female) Exam: Deferred Rectal (Female) Exam: Deferred Back Exam: Normal Inspection, Full Range of Motion, NT Extremities: Normal Inspection, Normal Range of Motion, Non-Tender, Normal Capillary Refill, No Pedal Edema Neurological: Alert, Oriented, CN II-XII Intact, Normal Cognition, Normal Gait, Normal Reflexes, No Motor/Sensory Deficits Psychiatric: Normal Affect, Normal Mood Skin Exam: Warm, Dry, Intact, Normal Color, No Rash Lymphatic: No Adenopathy Course - Vital Signs Last Recorded V/S: Last Vital Signs Temp 36.9 C 02/12/18 18:50 Pulse 88 02/12/18 18:50 Resp 18 02/12/18 18:50 BP 152/83 H 02/12/18 18:50 Pulse Ox 98 02/12/18 18:50 - Orders/Labs/Meds Orders: Active Orders 24 hr Category Date Time Status Abdomen Pelvis w Cont [CT] Urgent Exams 02/12/18 19:47 Taken DRUG SCREEN URINE BIORAD [URCHEM] Stat Lab 02/12/18 19:17 Ordered UA W/MICROSCOPIC [URIN] Stat Lab 02/12/18 19:17 Ordered Labs: Laboratory Tests 02/12/18 02/12/18 02/12/18 Range/Units 19:13 19:13 19:17 WBC 6.1 (5.0-10.0) 10^3/uL RBC 3.85 L (4.2-5.4) 10^6/uL Hgb 11.5 L (12.0-16.0) g/dL Hct 35.0 L (37.0-47.0) % MCV 90.9 (80-100) fL MCH 29.9 (27.0-34.0) pg MCHC 32.9 L (33.0-35.0) g/dL Plt Count 265 D (150-450) 10^3/uL Neut % (Auto) 41.9 L (42.2-75.2) % Lymph % (Auto) 42.4 (20.5-50.1) % [place] % (Auto) 11.9 H (2-8) % Eos % (Auto) 3.6 H (1.0-3.0) % Baso % (Auto) 0.2 (0.0-1.0) % Sodium 136 (135-145) mmol/L Potassium 3.9 (3.6-5.0) mmol/L Chloride 103 (101-111) mmol/L Carbon Dioxide 24.0 (21.0-31.0) mmol/L Anion Gap 12.9 BUN 11 (7-18) mg/dL Creatinine 0.6 (0.6-1.3) mg/dL Est Cr Clr Drug Dosing 121.96 mL/min Estimated GFR (MDRD) > 60 BUN/Creatinine Ratio 18.33 Glucose 88 (74-105) mg/dL Calcium 8.9 (8.4-10.2) mg/dl Total Bilirubin 0.5 (0.2-1.0) mg/dL AST 51 H (10-42) IU/L ALT 48 (10-60) IU/L Alkaline Phosphatase 82 (42-121) IU/L Total Protein 7.4 (6.7-8.2) g/dl Albumin 3.8 (3.2-5.5) g/dl Globulin 3.6 Albumin/Globulin Ratio 1.06 Amylase 70 (28-100) U/L Lipase 26 (22-51) U/L Urine Color Yellow (YELLOW) Urine Appearance Slightly cloudy (CLEAR) Urine pH 6.0 (5.0-9.0) Ur Specific [place] <= 1.005 (1.005-1.030) Urine Protein Negative (NEGATIVE) Urine Glucose (UA) Negative (NEGATIVE) Urine Ketones Negative (NEGATIVE) Urine Occult Blood Negative (NEGATIVE) Urine Nitrite Negative (NEGATIVE) Urine Bilirubin Negative (NEGATIVE) Urine Urobilinogen 0.2 (0.2-1.0) mg/dL Ur Leukocyte Esterase Negative (NEGATIVE) Urine RBC 0-5 /HPF Urine WBC 0-5 (0-5/HPF) /HPF Ur Epithelial Cells Few /HPF Urine Bacteria Rare (0-FEW/HPF) /HPF Urine Mucus Rare /LPF Urine Opiates Screen (NEGATIVE) Ur Oxycodone Screen (NEGATIVE) Urine Methadone Screen (NEGATIVE) Ur Barbiturates Screen (NEGATIVE) U Tricyclic Antidepress (NEGATIVE) Ur Phencyclidine Scrn (NEGATIVE) Ur Amphetamine Screen (NEGATIVE) U Methamphetamines Scrn (NEGATIVE) Urine MDMA Screen (NEGATIVE) U Benzodiazepines Scrn (NEGATIVE) Urine Cocaine Screen (NEGATIVE) U Marijuana (THC) Screen (NEGATIVE) 02/12/18 Range/Units 19:17 WBC (5.0-10.0) 10^3/uL RBC (4.2-5.4) 10^6/uL Hgb (12.0-16.0) g/dL Hct (37.0-47.0) % MCV (80-100) fL MCH (27.0-34.0) pg MCHC (33.0-35.0) g/dL Plt Count (150-450) 10^3/uL Neut % (Auto) (42.2-75.2) % Lymph % (Auto) (20.5-50.1) % [place] % (Auto) (2-8) % Eos % (Auto) (1.0-3.0) % Baso % (Auto) (0.0-1.0) % Sodium (135-145) mmol/L Potassium (3.6-5.0) mmol/L Chloride (101-111) mmol/L Carbon Dioxide (21.0-31.0) mmol/L Anion Gap BUN (7-18) mg/dL Creatinine (0.6-1.3) mg/dL Est Cr Clr Drug Dosing mL/min Estimated GFR (MDRD) BUN/Creatinine Ratio Glucose (74-105) mg/dL Calcium (8.4-10.2) mg/dl Total Bilirubin (0.2-1.0) mg/dL AST (10-42) IU/L ALT (10-60) IU/L Alkaline Phosphatase (42-121) IU/L Total Protein (6.7-8.2) g/dl Albumin (3.2-5.5) g/dl Globulin Albumin/Globulin Ratio Amylase (28-100) U/L Lipase (22-51) U/L Urine Color (YELLOW) Urine Appearance (CLEAR) Urine pH (5.0-9.0) Ur Specific [place] (1.005-1.030) Urine Protein (NEGATIVE) Urine Glucose (UA) (NEGATIVE) Urine Ketones (NEGATIVE) Urine Occult Blood (NEGATIVE) Urine Nitrite (NEGATIVE) Urine Bilirubin (NEGATIVE) Urine Urobilinogen (0.2-1.0) mg/dL Ur Leukocyte Esterase (NEGATIVE) Urine RBC /HPF Urine WBC (0-5/HPF) /HPF Ur Epithelial Cells /HPF Urine Bacteria (0-FEW/HPF) /HPF Urine Mucus /LPF Urine Opiates Screen Negative (NEGATIVE) Ur Oxycodone Screen Negative (NEGATIVE) Urine Methadone Screen Negative (NEGATIVE) Ur Barbiturates Screen Negative (NEGATIVE) U Tricyclic Antidepress Negative (NEGATIVE) Ur Phencyclidine Scrn Negative (NEGATIVE) Ur Amphetamine Screen Negative (NEGATIVE) U Methamphetamines Scrn Negative (NEGATIVE) Urine MDMA Screen Negative (NEGATIVE) U Benzodiazepines Scrn Negative (NEGATIVE) Urine Cocaine Screen Negative (NEGATIVE) U Marijuana (THC) Screen Negative (NEGATIVE) Meds: Medications Discontinued Medications Generic Name Dose Route Start Last Admin Trade Name Freq PRN Reason Stop Dose Admin Iopamidol 100 ml 02/12/18 19:47 Isovue-300 (61%) IVPUSH 02/12/18 19:48 ONETIME ONE Iopamidol 75 ml 02/12/18 20:20 02/12/18 20:21 Isovue-300 (61%) IVPUSH 02/12/18 20:21 75 ml ONETIME ONE Administration Tramadol HCl 50 mg 02/12/18 20:40 Ultram PO 02/12/18 20:41 ONETIME ONE - Re-Assessments/Exams Free Text/Narrative Re-Assessment/Exam: 02/12/18 19:50 The patient was advised of the lab results and of orders for a CT of her abdomen and pelvis. Departure - Departure Time of Disposition: 20:42 Disposition: Home, Self-Care 01 Condition: Fair Clinical Impression: Gall bladder disease - Discharge Information Instructions: Gallbladder Eating Plan Referrals: Terrance Acevedo MD [Primary Care Provider] - Forms: ED Department Discharge Care Plan Goals: The patient was advised of the examination, lab and CT results during the visit. The patient was given an oral dose of Toradol while in the ED. The patient was discharged with Toradol (50 mg) #2 to take 1 by mouth every 8 hours as needed for pain and a script for Toradol (50 mg) #8 to take 1 by mouth every 8 hours as needed for pain. The patient should follow-up with her primary care facility to schedule a gallbladder ultrasound. The patient should stick to a low fat diet and avoid fried foods. If the patient has any additional symptoms or concerns, the patient should follow-up with her primary care facility or return to the emergency department. - My Orders Last 24 Hours: My Active Orders 02/12/18 19:17 DRUG SCREEN URINE BIORAD [URCHEM] Stat UA W/MICROSCOPIC [URIN] Stat 02/12/18 19:47 Abdomen Pelvis w Cont [CT] Urgent - Assessment/Plan Last 24 Hours: My Active Orders 02/12/18 19:17 DRUG SCREEN URINE BIORAD [URCHEM] Stat UA W/MICROSCOPIC [URIN] Stat 02/12/18 19:47 Abdomen Pelvis w Cont [CT] Urgent
[2018-02-12 19:40] LABS: CHLORIDE,CL 103 mmol/L (101-111); SODIUM,NA 136 mmol/L (135-145)
[2018-02-12] MEDS ORDERED: Iopamidol 612 MG/ML 100 ML Bottle IVPUSH ONE (19:47)
[2018-02-12] MEDS ORDERED: Iopamidol 612 MG/ML 75 ML Bottle IVPUSH ONE (20:20)
[2018-02-12] MEDS ORDERED: traMADol 50 MG Tab ONE (20:44)
[2018-02-12 20:50] VITALS: BP 151/91
== END 2018-02-12 20:53 | disposition home or self-care (01) ==
LOC: DL.ED 18:33
DX: K82.9 Disease of gallbladder, unspecified (principal); Z88.1 Allergy status to other antibiotic agents; Z79.899 Other long term (current) drug therapy; Z87.891 Personal history of nicotine dependence
CPT/HCPCS: 36415; 74177; 80053; 80305; 81001; 82150; 83690; 85025; 99284; A9270; Q9967

== ENCOUNTER 2018-03-19 06:49 | Day surgery (SDC) | payer MEDICAID ==
[~2018-03-19 06:49] MED LIST: Dextrose 5%-0.45% NaCl 1,000 ML IV SCH; Midazolam 1 MG/ML 2 ML SDV ONE; Sodium Chloride 0.9% 10 ML Syringe FLUSH PRN; fentaNYL 100 MCG/2 ML SDV ONE
[2018-03-19] MEDS ORDERED: fentaNYL 100 MCG/2 ML SDV IV ONE ×3 (06:50→07:40)
[2018-03-19] MEDS ORDERED: Midazolam 1 MG/ML 2 ML SDV IV ONE ×3 (06:50→07:42)
--- NOTE | 2018-03-19 08:27 | OR ---
DATE: 03/19/2018 PROCEDURE: Esophagogastroduodenoscopy and multiple pinch biopsies. INSTRUMENT USED: GIF-Q180 Olympus video panendoscope. PREMEDICATIONS: No oral or topical anesthesia used. Fentanyl 100 mcg intravenous, Versed 2 mg intravenous. The procedure was done under pulse oximetry, BP recording, and director orange. INDICATION: The patient with persistent upper abdominal pain, unexplained and not responsive to medical measures, on PPI. DESCRIPTION OF PROCEDURE: Esophagogastroduodenoscopy is performed for detection of any active erosive lesions, Hayes esophagus and/or malignancy also under consideration, H. pylori status to the determined. Endoscopic hemostasis therapy if needed. The scope was passed with ease. Adequate visualization of the esophagus was made from proximal to distal areas. No upper esophageal lesions identified. No distal esophageal stricture. No uphill or downhill esophageal varices. No Lou-Peters tear. No evidence of erosive esophagitis by [place] criteria. No esophageal polyp or tumor mass identified. Z-line was seen at around 40 cm distal to the oral verge, configuration consistent with grade 1 by ZAP classification. No proximal gastric varices noted. Gastric fundus examination by retroflexion showed no polypoid lesions. No gastric ulcer, malignant mass, or vascular ectasia identified. Duodenal bulb showed no ulcer. Visualized second part of the duodenum was unremarkable. Multiple pinch biopsies were taken from the gastric antrum and proximal body and sent for PyloriTek test for H. pylori, and if negative in an hour, the tissue is to be sent for histopathology. No bleeding was noted from any of the visualized areas at the completion of examination. Photographs were taken of the duodenal bulb, gastric antrum, fundus, and distal esophagus. IMPRESSION: Normal study. The patient tolerated the procedure well. [facility] /[id number]
--- NOTE | 2018-03-19 09:13 | LETTER ---
03/19/2018 Madelin Hunter MD [facility] [address] [place] [address] RE: YADIRA HENRIQUEZ SERGO : [address] Hunter: Ms. Yadira Henriquez had esophagogastroduodenoscopy done this morning and she tolerated the procedure well. I herewith send a copy of the endoscopy note and photographs for your review. Thank you. Sincerely, [facility] /[id number]
[2018-03-19 10:24] VITALS: BP 123/70
== END 2018-03-19 09:45 | disposition home or self-care (01) ==
LOC: DL.ENDO 06:49
PROVIDERS: ATTEND Internal Medicine Gastroenterology
DX: R10.10 Upper abdominal pain, unspecified (principal); K31.9 Disease of stomach and duodenum, unspecified; B18.2 Chronic viral hepatitis C; Z87.891 Personal history of nicotine dependence; Z88.1 Allergy status to other antibiotic agents
CPT/HCPCS: 43239; 87077; J7042; J2250; J3010

== ENCOUNTER 2018-03-31 11:17 | Emergency (ER) | payer MEDICAID, OTHER ==
[2018-03-31 11:21] VITALS: BP 152/76
[2018-03-31] MEDS ORDERED: GI Cocktail Oral Solution 30 ML PO ONE (12:02)
[2018-03-31] MEDS ORDERED: Ketorolac 30 MG/ML SDV IM ONE (12:04)
[2018-03-31 12:39] LABS: ANION GAP 9.7; CHLORIDE,CL 105 mmol/L (101-111); SODIUM,NA 138 mmol/L (135-145)
--- NOTE | 2018-03-31 13:04 | EDM.PDOC ---
ED HPI GENERAL MEDICAL PROBLEM - General Chief Complaint: Abdominal Pain Stated Complaint: [id number] STOMACH PAIN Time Seen by Provider: 03/31/18 11:50 Source of Information: Reports: Patient History Limitations: Reports: No Limitations - History of Present Illness INITIAL COMMENTS - FREE TEXT/NARRATIVE: Patient comes emergency department today with complaints of epigastric/ abdominal pain that has been going on for 2-3 months. Her pain is not getting worse she is just getting tired of it. She has had CAT scans ultrasounds EGDs and colonoscopies without any findings of her abdominal pain. She has not tried anything for her pain. She does have another scan this week on Sunday which she is unsure what it is for. She has been taking some medication at home but she is not sure what it is and it doesn't help her pain. Her pain is the same as it has been for the last 2 months. Some nausea no vomiting but no current nausea. No hematuria dysuria or urinary frequency. No flank pain. No fever no chills. No vaginal discharge or complaints. Appetite. No diarrhea or black or tarry stools. Upper Abdomen Pain Score (Numeric/FACES): 8 - Related Data Allergies Allergy/AdvReac Type Severity Reaction Status Date / Time cephalexin [From Keflex] Allergy Hives Verified 03/31/18 11:29 sulfamethoxazole Allergy Hives Verified 03/31/18 11:29 [From Bactrim] trimethoprim [From Bactrim] Allergy Hives Verified 03/31/18 11:29 Home Meds: Home Meds Gabapentin [Neurontin] 800 mg PO TID 10/08/16 [History] buPROPion HCl [buPROPion HCl ER] 300 mg PO DAILY 10/08/16 [History] Acetaminophen 650 mg PO ASDIRECTED 03/18/18 [History] Ibuprofen [Motrin] 600 mg PO ASDIRECTED PRN 03/18/18 [History] Multivitamin [Multi-Vitamin Daily] 1 tab PO DAILY 03/18/18 [History] Naltrexone 50 mg PO DAILY 03/18/18 [History] Pantoprazole [ProTONIX] 40 mg PO DAILY 03/18/18 [History] QUEtiapine [SEROquel] 100 mg PO BEDTIME 03/18/18 [History] hydrOXYzine HCl [hydrOXYzine] 25 mg PO TID 03/18/18 [History] Past Medical History - Past Health History Medical/Surgical History: Denies Medical/Surgical History HEENT 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: None Cardiovascular 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: None Respiratory 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: None Gastrointestinal 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: GERD Genitourinary 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: 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: Musculoskeletal 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: Back Pain, Chronic, Other (See Below) Other Musculoskeletal History: herniated disk Neurological 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: Seizure Psychiatric 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: Addiction, Anxiety, Depression Endocrine/Metabolic 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: None Hematologic 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: None Immunologic 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: None Oncologic (Cancer) 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: Cervix Dermatologic 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: None - Infectious Disease History Infectious Disease 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: Chicken Pox - Past Surgical History Head Surgeries/Procedures: Reports: None HEENT Surgical 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: None Cardiovascular Surgical 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: None Respiratory Surgical 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: None GI Surgical 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: None Female Surgical 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: Section, Hysterectomy Endocrine Surgical 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: None Neurological Surgical 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: None Musculoskeletal Surgical 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: Other (See Below) Other Musculoskeletal Surgeries/Procedures:: surgery on both feet Oncologic Surgical 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: None Dermatological Surgical 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: None Social & Family History - Family History Family Medical History: Noncontributory Neurological: Reports: Seizure - Tobacco Use Smoking Status *Q: Never Smoker Second Hand Smoke Exposure: No - Caffeine Use Caffeine Use: Reports: Coffee Other Caffeine Use: AVERAGE OF 2 CUPS DAILY - Recreational Drug Use Recreational Drug Use: No - Sexual History Sexual 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: Sexually Active - Living Situation & Occupation Living situation: Reports: with Significant Other Occupation: Unemployed ED ROS GENERAL - Review of Systems Review Of Systems: ROS reveals no pertinent complaints other than HPI. ED EXAM, GI/ABD - Physical Exam Exam: See Below Exam Limited By: No Limitations General Appearance: Alert, WD/WN, No Apparent Distress Ears: Normal External Exam, Normal TMs Nose: Normal Inspection Throat/Mouth: Normal Inspection, Normal Oropharynx Head: Atraumatic, Normocephalic Neck: Normal Inspection, Supple Respiratory/Chest: No Respiratory Distress, Lungs Clear, Normal Breath Sounds, No Accessory Muscle Use Cardiovascular: Normal Peripheral Pulses, Regular Rate, Rhythm GI/Abdominal Exam: Normal Bowel Sounds, Soft, No Organomegaly, No Distention, No Abnormal Bruit, Tender (Mild tenderness to the epigastric region as well as right upper quadrant without guarding or rebound.) (Female) Exam: Deferred Rectal (Female) Exam: Deferred Back Exam: CVA Tenderness (L), CVA Tenderness (R) Extremities: Normal Inspection, Normal Range of Motion, Normal Capillary Refill Neurological: Alert, Oriented, CN II-XII Intact Psychiatric: Normal Affect Skin Exam: Warm, Dry, Intact, Normal Color Lymphatic: No Adenopathy Course - Vital Signs Last Recorded V/S: Last Vital Signs Temp 37.0 C 03/31/18 11:20 Pulse 73 03/31/18 11:20 Resp 18 03/31/18 11:20 BP 152/76 H 03/31/18 11:20 Pulse Ox 98 03/31/18 11:20 - Orders/Labs/Meds Orders: Active Orders 24 hr Category Date Time Status EKG 12 Lead [EKG Documentation Completion] [RC] URGENT Care 03/31/18 12:01 Active HCG QUALITATIVE,URINE [URCHEM] Stat Lab 03/31/18 11:37 Ordered UA W/MICROSCOPIC [URIN] Stat Lab 03/31/18 11:37 Ordered Labs: Laboratory Tests 03/31/18 03/31/18 03/31/18 Range/Units 11:37 11:37 12:11 WBC 5.6 (5.0-10.0) 10^3/uL RBC 4.22 (4.2-5.4) 10^6/uL Hgb 12.5 (12.0-16.0) g/dL Hct 38.9 (37.0-47.0) % MCV 92.2 (80-100) fL MCH 29.6 (27.0-34.0) pg MCHC 32.1 L (33.0-35.0) g/dL Plt Count 273 (150-450) 10^3/uL Neut % (Auto) 43.7 (42.2-75.2) % Lymph % (Auto) 40.3 (20.5-50.1) % [place] % (Auto) 12.8 H (2-8) % Eos % (Auto) 3.0 (1.0-3.0) % Baso % (Auto) 0.2 (0.0-1.0) % Sodium (135-145) mmol/L Potassium (3.6-5.0) mmol/L Chloride (101-111) mmol/L Carbon Dioxide (21.0-31.0) mmol/L Anion Gap BUN (7-18) mg/dL Creatinine (0.6-1.3) mg/dL Est Cr Clr Drug Dosing mL/min Estimated GFR (MDRD) BUN/Creatinine Ratio Glucose (74-105) mg/dL Calcium (8.4-10.2) mg/dl Total Bilirubin (0.2-1.0) mg/dL AST (10-42) IU/L ALT (10-60) IU/L Alkaline Phosphatase (42-121) IU/L Troponin I (0.00-0.02) ng/ml C-Reactive Protein (0.0-1.3) mg/dL Total Protein (6.7-8.2) g/dl Albumin (3.2-5.5) g/dl Globulin Albumin/Globulin Ratio Urine Color Yellow (YELLOW) Urine Appearance Slightly cloudy (CLEAR) Urine pH 7.5 (5.0-9.0) Ur Specific [place] 1.010 (1.005-1.030) Urine Protein Negative (NEGATIVE) Urine Glucose (UA) Negative (NEGATIVE) Urine Ketones Negative (NEGATIVE) Urine Occult Blood Negative (NEGATIVE) Urine Nitrite Negative (NEGATIVE) Urine Bilirubin Negative (NEGATIVE) Urine Urobilinogen 0.2 (0.2-1.0) mg/dL Ur Leukocyte Esterase Negative (NEGATIVE) Urine RBC 0-5 /HPF Urine WBC 0-5 (0-5/HPF) /HPF Ur Epithelial Cells Few /HPF Amorphous Sediment Rare (0/HPF) /HPF Urine Bacteria Rare (0-FEW/HPF) /HPF Urine Mucus Rare /LPF Urine HCG, Qual Negative 03/31/18 03/31/18 Range/Units 12:11 12:11 WBC (5.0-10.0) 10^3/uL RBC (4.2-5.4) 10^6/uL Hgb (12.0-16.0) g/dL Hct (37.0-47.0) % MCV (80-100) fL MCH (27.0-34.0) pg MCHC (33.0-35.0) g/dL Plt Count (150-450) 10^3/uL Neut % (Auto) (42.2-75.2) % Lymph % (Auto) (20.5-50.1) % [place] % (Auto) (2-8) % Eos % (Auto) (1.0-3.0) % Baso % (Auto) (0.0-1.0) % Sodium 138 (135-145) mmol/L Potassium 4.7 (3.6-5.0) mmol/L Chloride 105 (101-111) mmol/L Carbon Dioxide 28.0 (21.0-31.0) mmol/L Anion Gap 9.7 BUN 9 (7-18) mg/dL Creatinine 0.8 (0.6-1.3) mg/dL Est Cr Clr Drug Dosing 88.18 mL/min Estimated GFR (MDRD) > 60 BUN/Creatinine Ratio 11.25 Glucose 96 (74-105) mg/dL Calcium 9.2 (8.4-10.2) mg/dl Total Bilirubin 0.4 (0.2-1.0) mg/dL AST 43 H (10-42) IU/L ALT 40 (10-60) IU/L Alkaline Phosphatase 85 (42-121) IU/L Troponin I < 0.02 (0.00-0.02) ng/ml C-Reactive Protein 0.5 (0.0-1.3) mg/dL Total Protein 7.8 (6.7-8.2) g/dl Albumin 4.0 (3.2-5.5) g/dl Globulin 3.8 Albumin/Globulin Ratio 1.05 Urine Color (YELLOW) Urine Appearance (CLEAR) Urine pH (5.0-9.0) Ur Specific [place] (1.005-1.030) Urine Protein (NEGATIVE) Urine Glucose (UA) (NEGATIVE) Urine Ketones (NEGATIVE) Urine Occult Blood (NEGATIVE) Urine Nitrite (NEGATIVE) Urine Bilirubin (NEGATIVE) Urine Urobilinogen (0.2-1.0) mg/dL Ur Leukocyte Esterase (NEGATIVE) Urine RBC /HPF Urine WBC (0-5/HPF) /HPF Ur Epithelial Cells /HPF Amorphous Sediment (0/HPF) /HPF Urine Bacteria (0-FEW/HPF) /HPF Urine Mucus /LPF Urine HCG, Qual Meds: Medications Discontinued Medications Generic Name Dose Route Start Last Admin Trade Name Freq PRN Reason Stop Dose Admin Al Hydroxide/Mg Hydroxide 30 ml 03/31/18 12:02 03/31/18 12:17 Gi Cocktail PO 03/31/18 12:03 30 ml ONETIME ONE Administration Ketorolac Tromethamine 30 mg 03/31/18 12:04 03/31/18 12:17 Toradol IM 03/31/18 12:05 30 mg ONETIME ONE Administration - Re-Assessments/Exams Free Text/Narrative Re-Assessment/Exam: 03/31/18 16:15 Her laboratory evaluation is really rather unremarkable. She has been worked up many times and this is a chronic situation. She has a follow-up appointment this week for further evaluation of her chronic abdominal pain. I will discharge her home at this time as she appears in no acute distress and with normal vital signs as well as rather unremarkable laboratory evaluation. Departure - Departure Time of Disposition: 13:01 Disposition: Home, Self-Care 01 Clinical Impression: Chronic epigastric pain - Discharge Information Instructions: Abdominal Pain, Adult, [id number] Forms: ED Department Discharge Additional Instructions: Tylenol and or Ibuprofen for pain. Follow up with PCP this week as planned for continued evaluation of the chronic abd pain. REturn to the ED if new or worsening symptoms. - My Orders Last 24 Hours: My Active Orders 03/31/18 11:37 HCG QUALITATIVE,URINE [URCHEM] Stat UA W/MICROSCOPIC [URIN] Stat 03/31/18 12:01 EKG 12 Lead [EKG Documentation Completion] [RC] URGENT - Assessment/Plan Last 24 Hours: My Active Orders 03/31/18 11:37 HCG QUALITATIVE,URINE [URCHEM] Stat UA W/MICROSCOPIC [URIN] Stat 03/31/18 12:01 EKG 12 Lead [EKG Documentation Completion] [RC] URGENT Assessment:: Acute on chronic epigastric pain. Plan: Tylenol and or Ibuprofen for pain. Follow up with PCP this week as planned for continued evaluation of the chronic abd pain. REturn to the ED if new or worsening symptoms.
--- NOTE | 2018-04-02 07:44 | EKG ---
03/31/2018- YADIRA HENRIQUEZ - EKG per my reading shows sinus rhythm at a rate of [address] changes[address] [facility] /[id number]
== END 2018-03-31 13:08 | disposition home or self-care (01) ==
LOC: DL.ED 11:17
DX: R10.13 Epigastric pain (principal); K21.9 Gastro-esophageal reflux disease without esophagitis; F41.9 Anxiety disorder, unspecified; F32.9 Major depressive disorder, single episode, unspecified; Z79.899 Other long term (current) drug therapy; Z88.2 Allergy status to sulfonamides; Z88.1 Allergy status to other antibiotic agents
CPT/HCPCS: 36415; 71046; 80053; 81001; 81025; 84484; 85025; 86140; 93005; 96372; 99284; A9270; J1885

== ENCOUNTER 2018-10-15 09:55 | Emergency (ER) | payer MEDICAID ==
--- NOTE | 2018-10-15 10:04 | EDM.PDOC ---
ED HPI GENERAL MEDICAL PROBLEM - General Chief Complaint: Chest Pain Stated Complaint: CHEST PAIN [id number] Time Seen by Provider: 10/15/18 10:03 Source of Information: Reports: Patient, Old Records, RN, RN Notes Reviewed History Limitations: Reports: No Limitations - History of Present Illness INITIAL COMMENTS - FREE TEXT/NARRATIVE: Pt presents to ER from home by POV with c/o cough x10 days with subjective "low grade fevers", mild sore throat, and occ. sputum production. Pt reports onset of sharp chest pains and upper back pains, especially with coughing. Also she has developed some blood streaking in the sputum. She denies shortness of breath , lightheadedness, edema, palpitations, or rapid HR. Duration: Day(s): (10) Location: Reports: Chest Quality: Reports: Sharp Severity: Moderate Improves with: Reports: None Worsens with: Reports: Breathing (Coughing) Associated Symptoms: Reports: No Other Symptoms - Related Data Allergies Allergy/AdvReac Type Severity Reaction Status Date / Time cephalexin [From Keflex] Allergy Hives Verified 10/15/18 10:09 sulfamethoxazole Allergy Hives Verified 10/15/18 10:09 [From Bactrim] trimethoprim [From Bactrim] Allergy Hives Verified 10/15/18 10:09 Home Meds: Home Meds Gabapentin [Neurontin] 800 mg PO TID 10/08/16 [History] buPROPion HCl [buPROPion HCl ER] 300 mg PO DAILY 10/08/16 [History] Acetaminophen 650 mg PO ASDIRECTED 03/18/18 [History] Ibuprofen [Motrin] 600 mg PO ASDIRECTED PRN 03/18/18 [History] Multivitamin [Multi-Vitamin Daily] 1 tab PO DAILY 03/18/18 [History] Pantoprazole [ProTONIX] 40 mg PO DAILY 03/18/18 [History] QUEtiapine [SEROquel] 100 mg PO BEDTIME 03/18/18 [History] hydrOXYzine HCl [hydrOXYzine] 25 mg PO TID 03/18/18 [History] Past Medical History - Past Health History Medical/Surgical History: Denies Medical/Surgical History HEENT 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: None Cardiovascular 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: None Respiratory 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: None Gastrointestinal 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: GERD Genitourinary 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: None 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: Musculoskeletal 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: Back Pain, Chronic, Other (See Below) Other Musculoskeletal History: herniated disk Neurological 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: Seizure Psychiatric 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: Addiction, Anxiety, Depression Endocrine/Metabolic 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: None Hematologic 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: None Immunologic 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: None Oncologic (Cancer) 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: Cervix Dermatologic 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: None - Infectious Disease History Infectious Disease 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: Chicken Pox - Past Surgical History Head Surgeries/Procedures: Reports: None HEENT Surgical 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: None Cardiovascular Surgical 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: None Respiratory Surgical 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: None GI Surgical 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: None Female Surgical 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: Section, Hysterectomy Endocrine Surgical 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: None Neurological Surgical 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: None Musculoskeletal Surgical 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: Other (See Below) Other Musculoskeletal Surgeries/Procedures:: surgery on both feet Oncologic Surgical 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: None Dermatological Surgical 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: None Social & Family History - Family History Family Medical History: Noncontributory Neurological: Reports: Seizure - Caffeine Use Caffeine Use: Reports: Coffee Other Caffeine Use: AVERAGE OF 2 CUPS DAILY - Sexual History Sexual 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: Sexually Active - Living Situation & Occupation Living situation: Reports: with Significant Other Occupation: Unemployed ED ROS GENERAL - Review of Systems Review Of Systems: ROS reveals no pertinent complaints other than HPI. ED EXAM, GENERAL - Physical Exam Exam: See Below Exam Limited By: No Limitations General Appearance: Alert, WD/WN, No Apparent Distress Eye Exam: Bilateral Eye: Normal Inspection Nose: Normal Inspection, Normal Mucosa, No Blood Throat/Mouth: Normal Lips, Normal Teeth, Normal Gums, Normal Voice, No Airway Compromise, Other (Mild streaks of oropharyngeal erythema) Head: Atraumatic, Normocephalic Neck: Normal Inspection, Supple, Non-Tender, Full Range of Motion. No: Lymphadenopathy (L), Lymphadenopathy (R) Respiratory/Chest: No Respiratory Distress, No Accessory Muscle Use, Decreased Breath Sounds, Crackles. No: Rales, Rhonchi, Wheezing, Stridor Cardiovascular: Normal Peripheral Pulses, Regular Rate, Rhythm, No Edema, No Gallop, No JVD, No Murmur, No Rub GI/Abdominal: Normal Bowel Sounds, Soft, Non-Tender, No Distention Back Exam: Normal Inspection Extremities: Normal Inspection, Normal Range of Motion, Non-Tender, Normal Capillary Refill, No Pedal Edema Neurological: Alert, Oriented, CN II-XII Intact, Normal Cognition, Normal Gait, No Motor/Sensory Deficits Psychiatric: Normal Affect, Normal Mood Skin Exam: Warm, Dry, Intact, Normal Color, No Rash EKG INTERPRETATION EKG Date: 10/15/18 Time: 10:14 Rhythm: NSR Rate (Beats/Min): 80 [place]: Normal P-Wave: Present QRS: Normal ST-T: Normal QT: Normal Comparison: NA - No Prior EKG Course - Vital Signs Last Recorded V/S: Last Vital Signs Temp 37.0 C 10/15/18 10:01 Pulse 88 10/15/18 10:01 Resp 20 10/15/18 10:01 BP 128/77 10/15/18 10:01 Pulse Ox 96 10/15/18 10:01 - Orders/Labs/Meds Orders: Active Orders 24 hr Category Date Time Status EKG 12 Lead [EKG Documentation Completion] [] STAT Care 10/15/18 10:25 Active Peripheral IV Care [] . DIRECTED Care 10/15/18 11:47 Active CULTURE STREP A CONFIRMATION [] Stat Lab 10/15/18 10:37 Results STREP SCRN A RAPID W CULT CONF [] Stat Lab 10/15/18 10:37 Results Sodium Chloride 0.9% [Saline Flush] Med 10/15/18 11:47 Active 10 ml FLUSH ASDIRECTED PRN Peripheral IV Insertion Adult [OM.PC] Stat Oth 10/15/18 11:47 Ordered Medication Orders Sodium Chloride (Saline Flush) 10 ml FLUSH ASDIRECTED PRN PRN Reason: Keep Vein Open Last Admin: 10/15/18 11:54 Dose: 10 ml Labs: Laboratory Tests 10/15/18 10/15/18 10/15/18 Range/Units 10:37 10:37 10:37 WBC 7.1 (5.0-10.0) 10^3/uL RBC 4.21 (4.2-5.4) 10^6/uL Hgb 12.1 (12.0-16.0) g/dL Hct 36.8 L (37.0-47.0) % MCV 87.4 D (80-100) fL MCH 28.7 (27.0-34.0) pg MCHC 32.9 L (33.0-35.0) g/dL Plt Count 240 (150-450) 10^3/uL Neut % (Auto) 49.6 (42.2-75.2) % Lymph % (Auto) 34.0 (20.5-50.1) % Brown % (Auto) 14.3 H (2-8) % Eos % (Auto) 1.8 (1.0-3.0) % Baso % (Auto) 0.3 (0.0-1.0) % D-Dimer, Quantitative 777 H (0-400) ng/mL Sodium 138 (135-145) mmol/L Potassium 3.9 (3.6-5.0) mmol/L Chloride 103 (101-111) mmol/L Carbon Dioxide 26.0 (21.0-31.0) mmol/L Anion Gap 12.9 BUN 16 (7-18) mg/dL Creatinine 0.8 (0.6-1.3) mg/dL Est Cr Clr Drug Dosing 88.18 mL/min Estimated GFR (MDRD) > 60 BUN/Creatinine Ratio 20.00 Glucose 96 (74-105) mg/dL Calcium 9.2 (8.4-10.2) mg/dl Total Bilirubin 0.4 (0.2-1.0) mg/dL AST 24 (10-42) IU/L ALT 16 (10-60) IU/L Alkaline Phosphatase 88 (42-121) IU/L Troponin I < 0.02 (0.00-0.02) ng/ml Total Protein 8.1 (6.7-8.2) g/dl Albumin 3.9 (3.2-5.5) g/dl Globulin 4.2 Albumin/Globulin Ratio 0.93 Lipase 44 (22-51) U/L HCG, Qual 10/15/18 Range/Units 10:41 WBC (5.0-10.0) 10^3/uL RBC (4.2-5.4) 10^6/uL Hgb (12.0-16.0) g/dL Hct (37.0-47.0) % MCV (80-100) fL MCH (27.0-34.0) pg MCHC (33.0-35.0) g/dL Plt Count (150-450) 10^3/uL Neut % (Auto) (42.2-75.2) % Lymph % (Auto) (20.5-50.1) % Brown % (Auto) (2-8) % Eos % (Auto) (1.0-3.0) % Baso % (Auto) (0.0-1.0) % D-Dimer, Quantitative (0-400) ng/mL Sodium (135-145) mmol/L Potassium (3.6-5.0) mmol/L Chloride (101-111) mmol/L Carbon Dioxide (21.0-31.0) mmol/L Anion Gap BUN (7-18) mg/dL Creatinine (0.6-1.3) mg/dL Est Cr Clr Drug Dosing mL/min Estimated GFR (MDRD) BUN/Creatinine Ratio Glucose (74-105) mg/dL Calcium (8.4-10.2) mg/dl Total Bilirubin (0.2-1.0) mg/dL AST (10-42) IU/L ALT (10-60) IU/L Alkaline Phosphatase (42-121) IU/L Troponin I (0.00-0.02) ng/ml Total Protein (6.7-8.2) g/dl Albumin (3.2-5.5) g/dl Globulin Albumin/Globulin Ratio Lipase (22-51) U/L HCG, Qual Negative Meds: Medications Generic Name Dose Route Start Last Admin Trade Name Freq PRN Reason Stop Dose Admin Sodium Chloride 10 ml 10/15/18 11:47 10/15/18 11:54 Saline Flush FLUSH 10 ml ASDIRECTED PRN Administration Keep Vein Open Discontinued Medications Generic Name Dose Route Start Last Admin Trade Name Freq PRN Reason Stop Dose Admin Benzonatate 200 mg 10/15/18 10:31 10/15/18 10:40 Tessalon Perles PO 10/15/18 10:32 200 mg ONETIME ONE Administration Iopamidol 100 ml 10/15/18 11:47 10/15/18 12:13 Isovue-370 (76%) IVPUSH 10/15/18 11:48 80 ml ONETIME ONE Administration - Radiology Interpretation Free Text/Narrative:: [facility] Final Radiology Report Call: [phone] assistance Online chat: [email or web address] Name: YADIRA HENRIQUEZ Age: 42Years F Date: 10/15/2018 SSN: -- : 1975 Study: XR CHEST 2 VIEWS Requesting Physician: FIDELIA ANDRE Images: 2 Addl Studies: Provided Clinical History: Contrast: Contrast Medium: Contrast Amount: Contrast Method: CONFIDENTIALITY STATEMENT This report is intended only for use by the referring physician, and only in accordance with law. If you received this in error, call [phone]. Page 1 of 1 EXAM: XR Chest, 2 Views EXAM DATE/TIME: 10/15/2018 10:39 AM CLINICAL HISTORY: 42 years old, female; Signs and symptoms; Other: Cough TECHNIQUE: XR of the chest, 2 views. COMPARISON: CR Chest 2V 03/31/2018 12:05 PM FINDINGS: Lungs: Unremarkable. No consolidation. Pleural space: Unremarkable. No pleural effusion. No pneumothorax. Heart/Mediastinum: Unremarkable. No cardiomegaly. Bones/joints: Unremarkable. IMPRESSION: No evidence for acute pulmonary disease. Thank you for allowing us to participate in the care of your patient. Dictated and Authenticated by: Joseph Cifuentes MD 10/15/2018 11:47 AM Central Time ([place] & [place]) CT CHEST PE STUDY IMPRESSION: No pulmonary embolus or other acute thoracic disease identified. Thank you for allowing us to participate in the care of your patient. Dictated and Authenticated by: Joseph Cifuentes MD 10/15/2018 12:38 PM Central Time ([place] & [place]) Departure - Departure Time of Disposition: 12:39 Disposition: Home, Self-Care 01 Condition: Fair Clinical Impression: Influenza B Instructions: Influenza, Adult, [id number] Forms: ED Department Discharge Additional Instructions: Rx: Tessalon Perles 200mg Rx: Prednisone 20mg Follow up in clinic if not improved in 5 to 7 days. - My Orders Last 24 Hours: My Active Orders 10/15/18 10:25 EKG 12 Lead [EKG Documentation Completion] [RC] STAT 10/15/18 10:37 CULTURE STREP A CONFIRMATION [RM] Stat STREP SCRN A RAPID W CULT CONF [RM] Stat 10/15/18 11:47 Peripheral IV Care [RC] . DIRECTED Sodium Chloride 0.9% [Saline Flush] 10 ml FLUSH ASDIRECTED PRN Peripheral IV Insertion Adult [OM.PC] Stat - Assessment/Plan Last 24 Hours: My Active Orders 10/15/18 10:25 EKG 12 Lead [EKG Documentation Completion] [RC] STAT 10/15/18 10:37 CULTURE STREP A CONFIRMATION [] Stat STREP SCRN A RAPID W CULT CONF [] Stat 10/15/18 11:47 Peripheral IV Care [] . DIRECTED Sodium Chloride 0.9% [Saline Flush] 10 ml FLUSH ASDIRECTED PRN Peripheral IV Insertion Adult [OM.PC] Stat
[2018-10-15] MEDS ORDERED: Benzonatate 100 MG Cap PO ONE (10:31)
[2018-10-15 10:32] VITALS: BP 128/77
[2018-10-15 11:07] LABS: ANION GAP 12.9; CHLORIDE,CL 103 mmol/L (101-111); SODIUM,NA 138 mmol/L (135-145)
[2018-10-15] MEDS ORDERED: Sodium Chloride 0.9% 10 ML Syringe FLUSH PRN (11:47)
[2018-10-15] MEDS ORDERED: Iopamidol 755 Mg/ML 100 ML Bottle IVPUSH ONE (11:47)
== END 2018-10-15 12:58 | disposition home or self-care (01) ==
LOC: DL.ED 09:55
DX: J10.1 Influenza due to other identified influenza virus with other respiratory manifestations (principal); Z88.2 Allergy status to sulfonamides; Z88.8 Allergy status to other drugs, medicaments and biological substances; Z88.1 Allergy status to other antibiotic agents; Z79.899 Other long term (current) drug therapy
CPT/HCPCS: 36415; 71046; 71260; 80053; 83690; 84484; 84703; 85025; 85379; 87081; 87430; 87804; 93005; 99285; A9270; Q9967

== ENCOUNTER 2018-12-01 16:26 | Emergency (ER) | payer MEDICAID ==
[2018-12-01 16:31] VITALS: BP 153/89
[2018-12-01] MEDS ORDERED: Sodium Chloride 0.9% 1,000 ML IV ONE (17:54)
[2018-12-01] MEDS ORDERED: methylPREDNISolone Sodium Succinate 125 MG/2 ML SDV IM ONE (18:02)
--- NOTE | 2018-12-01 18:06 | EDM.PDOC ---
Scribed by Anitra Gutierrez 12/01/18 [id number] for Yenny Biswas NP ED HPI GENERAL MEDICAL PROBLEM - General Chief Complaint: Genitourinary Problem Stated Complaint: PUBIC AREA DESIREE, FELL [id number] Time Seen by Provider: 12/01/18 16:37 Source of Information: Reports: Patient, RN, RN Notes Reviewed History Limitations: Reports: No Limitations - History of Present Illness INITIAL COMMENTS - FREE TEXT/NARRATIVE: Patient presents to ER with complaint of pelvic pain---states pain is sharp-- feels like a "shock" of pain down the right leg. Rates pain 03/19. States she has been using Ibuprofen helps a little. She admits to numbness inside of legs bilaterally and bottom of right foot. Denies incontinence of bowel or bladder. Admits to constipation. Denies urinary symptoms. Denies blood in urine. Denies vaginal bleeding. Admits to history of herniated disc--lumbar. Onset Date: 11/30/18 Duration: Constant Location: Reports: Lower Extremity, Right Quality: Reports: Ache Severity: Moderate Improves with: Reports: None Worsens with: Reports: None Associated Symptoms: Reports: No Other Symptoms Pelvic Pain Score (Numeric/FACES): 7 - Related Data Allergies Allergy/AdvReac Type Severity Reaction Status Date / Time cephalexin [From Keflex] Allergy Hives Verified 12/01/18 16:31 sulfamethoxazole Allergy Hives Verified 12/01/18 16:31 [From Bactrim] trimethoprim [From Bactrim] Allergy Hives Verified 12/01/18 16:31 Home Meds: Home Meds Gabapentin [Neurontin] 800 mg PO TID 10/08/16 [History] buPROPion HCl [buPROPion HCl ER] 300 mg PO DAILY 10/08/16 [History] Acetaminophen 650 mg PO ASDIRECTED 03/18/18 [History] Ibuprofen [Motrin] 600 mg PO ASDIRECTED PRN 03/18/18 [History] Multivitamin [Multi-Vitamin Daily] 1 tab PO DAILY 03/18/18 [History] Pantoprazole [ProTONIX] 40 mg PO DAILY 03/18/18 [History] QUEtiapine [SEROquel] 100 mg PO BEDTIME 03/18/18 [History] hydrOXYzine HCl [hydrOXYzine] 25 mg PO TID 03/18/18 [History] Past Medical History - Past Health History Medical/Surgical History: Denies Medical/Surgical History HEENT 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: None Cardiovascular 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: None Respiratory 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: None Gastrointestinal 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: GERD Genitourinary 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: None 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: Musculoskeletal 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: Back Pain, Chronic, Other (See Below) Other Musculoskeletal History: herniated disk Neurological 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: Seizure Psychiatric 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: Addiction, Anxiety, Depression Endocrine/Metabolic 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: None Hematologic 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: None Immunologic 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: None Oncologic (Cancer) 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: Cervix Dermatologic 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: None - Infectious Disease History Infectious Disease 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: Chicken Pox - Past Surgical History Head Surgeries/Procedures: Reports: None HEENT Surgical 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: None Cardiovascular Surgical 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: None Respiratory Surgical 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: None GI Surgical 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: None Female Surgical 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: Section, Hysterectomy Endocrine Surgical 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: None Neurological Surgical 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: None Musculoskeletal Surgical 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: Other (See Below) Other Musculoskeletal Surgeries/Procedures:: surgery on both feet Oncologic Surgical 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: None Dermatological Surgical 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: None Social & Family History - Family History Family Medical History: Noncontributory Neurological: Reports: Seizure - Tobacco Use Smoking Status *Q: Current Every Day Smoker Years of Tobacco use: 20 Packs/Tins Daily: 0.1 Second Hand Smoke Exposure: Yes - Caffeine Use Caffeine Use: Reports: Coffee Other Caffeine Use: AVERAGE OF 2 CUPS DAILY - Recreational Drug Use Recreational Drug Use: No - Sexual History Sexual 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: Sexually Active - Living Situation & Occupation Living situation: Reports: with Significant Other Occupation: Unemployed ED ROS GENERAL - Review of Systems Review Of Systems: ROS reveals no pertinent complaints other than HPI. ED EXAM, RENAL/ - Physical Exam Exam: See Below Exam Limited By: No Limitations General Appearance: Alert, WD/WN, No Apparent Distress Eye Exam: Bilateral Eye: EOMI, Normal Inspection, PERRL Ears: Normal External Exam, Normal Canal, Hearing Grossly Normal, Normal TMs Nose: Normal Inspection, Normal Mucosa, No Blood Throat/Mouth: Normal Inspection, Normal Lips, Normal Teeth, Normal Gums, Normal Oropharynx, Normal Voice, No Airway Compromise Head: Atraumatic, Normocephalic Neck: Normal Inspection, Supple, Non-Tender, Full Range of Motion Respiratory/Chest: No Respiratory Distress, Lungs Clear, Normal Breath Sounds, No Accessory Muscle Use, Chest Non-Tender Cardiovascular: Normal Peripheral Pulses, Regular Rate, Rhythm, No Edema, No Gallop, No JVD, No Murmur, No Rub GI/Abdominal: Normal Bowel Sounds, Soft, Non-Tender, No Organomegaly, No Distention, No Abnormal Bruit, No Mass (Female) Exam: Deferred Rectal (Female) Exam: Deferred Back Exam: Other (decreased range of motion lumbar spine and pelvic pain.) Neurological: Alert, Oriented, CN II-XII Intact, Normal Cognition, Normal Gait, Normal Reflexes, No Motor/Sensory Deficits Psychiatric: Flat Affect Skin Exam: Warm, Dry, Intact, Normal Color, No Rash Lymphatic: No Adenopathy Course - Vital Signs Last Recorded V/S: Last Vital Signs Temp 98.5 F 12/01/18 16:28 Pulse 84 12/01/18 16:28 Resp 18 12/01/18 16:28 BP 153/89 H 12/01/18 16:28 Pulse Ox 98 12/01/18 16:28 - Orders/Labs/Meds Labs: Laboratory Tests 12/01/18 Range/Units 17:29 Urine Color Light yellow (YELLOW) Urine Appearance Clear (CLEAR) Urine pH 5.5 (5.0-9.0) Ur Specific [place] <= 1.005 (1.005-1.030) Urine Protein Negative (NEGATIVE) Urine Glucose (UA) Negative (NEGATIVE) Urine Ketones Negative (NEGATIVE) Urine Occult Blood Negative (NEGATIVE) Urine Nitrite Negative (NEGATIVE) Urine Bilirubin Negative (NEGATIVE) Urine Urobilinogen 0.2 (0.2-1.0) mg/dL Ur Leukocyte Esterase Negative (NEGATIVE) Meds: Medications Discontinued Medications Generic Name Dose Route Start Last Admin Trade Name Freq PRN Reason Stop Dose Admin Sodium Chloride 1,000 mls @ 999 mls/hr 12/01/18 17:54 Normal Saline IV 12/01/18 18:54 .BOLUS ONE Methylprednisolone Sodium Succinate 125 mg 12/01/18 18:02 Solu-Medrol IM 12/01/18 18:03 ONETIME ONE - Radiology Interpretation Free Text/Narrative:: Hip bilateral/ pelvis xray: FINDINGS: Bones/joints: There is no evidence of acute fracture. There is no evidence of joint malalignment or dislocation. Soft tissues: Normal. IMPRESSION: There is no evidence of acute fracture. Thank you for allowing us to participate in the care of your patient. Dictated and Authenticated by: Ben Hidalgo DO 12/01/2018 5:49 PM Central Time ([place] & [place]) lumbar xray: FINDINGS: Vertebrae: The lumbar spine demonstrates mild degenerative changes at multiple levels. No evidence of acute fracture. Gastrointestinal tract: A large amount of stool is noted throughout the colon. Soft tissues: Normal. IMPRESSION: 1. The lumbar spine demonstrates mild degenerative changes at multiple levels. 2. No evidence of acute fracture. Thank you for allowing us to participate in the care of your patient. Dictated and Authenticated by: Ben Hidalgo DO 12/01/2018 5:50 PM Central Time ([place] & [place]) Sacral/Coccyx xray: FINDINGS: Bones/joints: There is no evidence of acute fracture. Mild right sacroiliitis present. Soft tissues: Normal. Gastrointestinal tract: A large amount of stool is noted throughout the colon. IMPRESSION: 1. There is no evidence of acute fracture. 2. Mild right sacroiliitis present. Thank you for allowing us to participate in the care of your patient. Dictated and Authenticated by: Ben Hidalgo DO 12/01/2018 5:50 PM Central Time ([place] & [place]) See rad report Departure - Departure Time of Disposition: 17:55 Disposition: Home, Self-Care 01 Condition: Fair Clinical Impression: Sacroiliac inflammation, Pelvic pain, Sciatic leg pain Fall due to ice or snow Qualifiers: Encounter type: initial encounter Qualified Code(s): W00.9XXA - Unspecified fall due to ice and snow, initial encounter - Discharge Information *PRESCRIPTION DRUG MONITORING PROGRAM REVIEWED*: No *COPY OF PRESCRIPTION DRUG MONITORING REPORT IN PATIENT [facility]: No Instructions: Pelvic Pain, Female, [id number], Sciatica, [id number], Sacroiliac Joint Dysfunction Forms: ED Department Discharge Additional Instructions: RX: Prednisone Continue use tylenol and/or ibuprofen as directed for pain Follow up with your primary care facility for MRI May try physical therapy. I have read and agree with the documentation that has been completed regarding this visit. By signing this record, I attest that the documentation was completed in my physical presence and is an accurate record of the encounter.
== END 2018-12-01 18:20 | disposition home or self-care (01) ==
LOC: DL.ED 16:26
DX: M46.1 Sacroiliitis, not elsewhere classified (principal); R10.2 Pelvic and perineal pain; M54.31 Sciatica, right side; K21.9 Gastro-esophageal reflux disease without esophagitis; F41.9 Anxiety disorder, unspecified; F32.9 Major depressive disorder, single episode, unspecified; F17.210 Nicotine dependence, cigarettes, uncomplicated; Z88.1 Allergy status to other antibiotic agents; Z88.2 Allergy status to sulfonamides; Z79.899 Other long term (current) drug therapy; W00.0XXA Fall on same level due to ice and snow, initial encounter
CPT/HCPCS: 72100; 72220; 73521; 81003; 96372; 99284; J2930

== ENCOUNTER 2019-06-27 19:31 | Emergency (ER) | payer MEDICAID ==
[2019-06-27 20:32] VITALS: BP 157/80; PULSE 82
[2019-06-27] MEDS ORDERED: Ketorolac 30 MG/ML SDV IM ONE (21:00)
--- NOTE | 2019-06-27 21:11 | EDM.PDOC ---
ED HPI GENERAL MEDICAL PROBLEM - General Chief Complaint: Lower Extremity Injury/Pain Stated Complaint: ARMS,LEGS AND BACK HURTING Time Seen by Provider: 06/27/19 21:01 Source of Information: Reports: Patient History Limitations: Reports: No Limitations - History of Present Illness INITIAL COMMENTS - FREE TEXT/NARRATIVE: pt & spouse somewhat upset and argumentative over pain control. pt states been Dx with herniated disk 2 years ago but not under pain management. then states did have surgical referral but didn't want surgery done at the time then states unless injection for pain fails which hadn't been working well at all. but does have another appointment in a week. states present problem with pain and numbness started 2 days ago thought it would go away but not. denies incontenant of bowel & bladder. states instead has problem with regular BM. explained to pt the limitations of ER for a chronic problem and pain management. 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, NSAIDS Pelvic Pain Score (Numeric/FACES): 8 - Related Data Allergies Allergy/AdvReac Type Severity Reaction Status Date / Time cephalexin [From Keflex] Allergy Hives Verified 12/01/18 16:31 sulfamethoxazole Allergy Hives Verified 12/01/18 16:31 [From Bactrim] trimethoprim [From Bactrim] Allergy Hives Verified 12/01/18 16:31 Home Meds: Home Meds Gabapentin [Neurontin] 800 mg PO TID 10/08/16 [History] Acetaminophen 650 mg PO ASDIRECTED 03/18/18 [History] Ibuprofen [Motrin] 600 mg PO ASDIRECTED PRN 03/18/18 [History] Multivitamin [Multi-Vitamin Daily] 1 tab PO DAILY 03/18/18 [History] Pantoprazole [ProTONIX] 40 mg PO DAILY 03/18/18 [History] QUEtiapine [SEROquel] 100 mg PO BEDTIME 03/18/18 [History] Past Medical History - Past Health History Medical/Surgical History: Denies Medical/Surgical History HEENT 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: None Cardiovascular 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: None Respiratory 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: None Gastrointestinal 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: GERD Genitourinary 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: None 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: Musculoskeletal 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: Back Pain, Chronic, Other (See Below) Other Musculoskeletal History: herniated disk Neurological 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: Seizure Psychiatric 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: Addiction, Anxiety, Depression Endocrine/Metabolic 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: None Hematologic 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: None Immunologic 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: None Oncologic (Cancer) 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: Cervix Dermatologic 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: None - Infectious Disease History Infectious Disease 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: Chicken Pox - Past Surgical History Head Surgeries/Procedures: Reports: None HEENT Surgical 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: None Cardiovascular Surgical 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: None Respiratory Surgical 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: None GI Surgical History: Reports: None Female Surgical History: Reports: Section, Hysterectomy Endocrine Surgical History: Reports: None Neurological Surgical History: Reports: None Musculoskeletal Surgical History: Reports: Other (See Below) Other Musculoskeletal Surgeries/Procedures:: surgery on both feet Oncologic Surgical History: Reports: None Dermatological Surgical History: Reports: None Social & Family History - Family History Family Medical History: Noncontributory Neurological: Reports: Seizure - Tobacco Use Smoking Status *Q: Former Smoker Years of Tobacco use: 27 Packs/Tins Daily: 0.2 Used Tobacco, but Quit: Yes Month/Year Tobacco Last Used: 2017 - Caffeine Use Caffeine Use: Reports: Coffee Other Caffeine Use: AVERAGE OF 2 CUPS DAILY - Recreational Drug Use Recreational Drug Use: No - Sexual History Sexual History: Reports: Sexually Active - Living Situation & Occupation Living situation: Reports: with Significant Other Occupation: Unemployed Review of Systems - Review of Systems Review Of Systems: ROS reveals no pertinent complaints other than HPI. ED EXAM, GENERAL - Physical Exam Exam: See Below Exam Limited By: No Limitations General Appearance: Alert, WD/WN, Mild Distress, Other (upset) Ears: Hearing Grossly Normal Throat/Mouth: Normal Voice, No Airway Compromise Head: Atraumatic Neck: Non-Tender, Full Range of Motion Respiratory/Chest: No Respiratory Distress Cardiovascular: Regular Rate, Rhythm GI/Abdominal: Soft, Non-Tender Neurological: Alert, Oriented, Normal Cognition Psychiatric: Other (upset) Skin Exam: Warm, Dry, Normal Color Lymphatic: No Adenopathy Course - Vital Signs Last Recorded V/S: Last Vital Signs Temp 36.6 C 06/27/19 19:45 Pulse 82 06/27/19 20:31 Resp 19 06/27/19 20:31 BP 157/80 H 06/27/19 20:31 Pulse Ox 99 06/27/19 20:31 - Orders/Labs/Meds Orders: Active Orders 24 hr Category Date Time Status Lumbar Spine wo Cont [CT] Urgent Exams 06/27/19 21:00 Taken Meds: Medications Discontinued Medications Generic Name Dose Route Start Last Admin Trade Name Jennifer PRN Reason Stop Dose Admin Ketorolac Tromethamine 30 mg 06/27/19 21:00 06/27/19 21:22 Toradol IM 06/27/19 21:01 30 mg ONETIME ONE Administration - Re-Assessments/Exams Free Text/Narrative Re-Assessment/Exam: 06/27/19 22:35 results discussed with pt who is feeling better s/p IM toradol. states has neurontin, robaxin but not working as usual. Departure - Departure Time of Disposition: 22:36 Disposition: Home, Self-Care 01 Condition: Good Clinical Impression: Sciatica due to displacement of lumbar intervertebral disc - Discharge Information Forms: ED Department Discharge Additional Instructions: 1) rest 2) avoid bending lifting straining 3) try ice or heat to sore areas 4) follow up at clinic rx givne; toradol 10mg tid prn x 6 - My Orders Last 24 Hours: My Active Orders 06/27/19 21:00 Lumbar Spine wo Cont [CT] Urgent - Assessment/Plan Last 24 Hours: My Active Orders 06/27/19 21:00 Lumbar Spine wo Cont [CT] Urgent
== END 2019-06-27 22:46 | disposition home or self-care (01) ==
LOC: DL.ED 19:31
DX: M51.16 Intervertebral disc disorders with radiculopathy, lumbar region (principal); K21.9 Gastro-esophageal reflux disease without esophagitis; Z88.1 Allergy status to other antibiotic agents; Z88.2 Allergy status to sulfonamides; Z79.899 Other long term (current) drug therapy; Z87.891 Personal history of nicotine dependence
CPT/HCPCS: 72131; 96372; 99283; J1885

== ENCOUNTER 2019-10-07 20:14 | Emergency (ER) | payer MEDICAID ==
[2019-10-07] MEDS ORDERED: Acetaminophen/HYDROcodone 325-10 MG Tab PO ONE ×2 (20:15→21:27)
[2019-10-07 20:43] VITALS: BP 171/88; PULSE 72
--- NOTE | 2019-10-07 21:30 | EDM.PDOC ---
ED HPI GENERAL MEDICAL PROBLEM - General Chief Complaint: Chest Pain Stated Complaint: FELL AND SIDE HURTS Time Seen by Provider: 10/07/19 21:15 Source of Information: Reports: Patient, Family, RN History Limitations: Reports: No Limitations - History of Present Illness INITIAL COMMENTS - FREE TEXT/NARRATIVE: ED with c/o left rib pain, States tripped on dog and fell onto back. pain to left ribs lateral and below bra line, increase pain with movement and deep breathing. No loss of consciousness. Notes on suboxone for remote hx meth use. Left Thoracic Pain Score (Numeric/FACES): 10 - Related Data Allergies Allergy/AdvReac Type Severity Reaction Status Date / Time cephalexin [From Keflex] Allergy Hives Verified 10/07/19 20:43 sulfamethoxazole Allergy Hives Verified 10/07/19 20:43 [From Bactrim] trimethoprim [From Bactrim] Allergy Hives Verified 10/07/19 20:43 Home Meds: Home Meds Gabapentin [Neurontin] 800 mg PO TID 10/08/16 [History] Acetaminophen 650 mg PO ASDIRECTED 03/18/18 [History] Ibuprofen [Motrin] 600 mg PO ASDIRECTED PRN 03/18/18 [History] Multivitamin [Multi-Vitamin Daily] 1 tab PO DAILY 03/18/18 [History] Pantoprazole [ProTONIX] 40 mg PO DAILY 03/18/18 [History] QUEtiapine [SEROquel] 100 mg PO BEDTIME 03/18/18 [History] Past Medical History - Past Health History Medical/Surgical History: Denies Medical/Surgical History HEENT History: Reports: None Cardiovascular History: Reports: None Respiratory History: Reports: None Gastrointestinal History: Reports: GERD Genitourinary History: Reports: None 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: Musculoskeletal History: Reports: Back Pain, Chronic, Other (See Below) Other Musculoskeletal History: herniated disk Neurological History: Reports: Seizure Psychiatric History: Reports: Addiction, Anxiety, Depression Endocrine/Metabolic History: Reports: None Hematologic History: Reports: None Immunologic History: Reports: None Oncologic (Cancer) History: Reports: Cervix Dermatologic History: Reports: None - Infectious Disease History Infectious Disease History: Reports: Chicken Pox - Past Surgical History Head Surgeries/Procedures: Reports: None HEENT Surgical History: Reports: None Cardiovascular Surgical History: Reports: None Respiratory Surgical History: Reports: None GI Surgical History: Reports: None Female Surgical History: Reports: Section, Hysterectomy Endocrine Surgical History: Reports: None Neurological Surgical History: Reports: None Musculoskeletal Surgical History: Reports: Other (See Below) Other Musculoskeletal Surgeries/Procedures:: surgery on both feet Oncologic Surgical History: Reports: None Dermatological Surgical History: Reports: None Social & Family History - Family History Family Medical History: Noncontributory Neurological: Reports: Seizure - Tobacco Use Smoking Status *Q: Never Smoker Second Hand Smoke Exposure: No - Caffeine Use Caffeine Use: Reports: Coffee Other Caffeine Use: AVERAGE OF 2 CUPS DAILY - Recreational Drug Use Recreational Drug Use: No - Sexual History Sexual History: Reports: Sexually Active - Living Situation & Occupation Living situation: Reports: with Significant Other Occupation: Unemployed ED ROS GENERAL - Review of Systems Review Of Systems: Comprehensive ROS is negative, except as noted in HPI. ED EXAM, GENERAL - Physical Exam Exam: See Below Exam Limited By: No Limitations General Appearance: Alert, Moderate Distress Eye Exam: Bilateral Eye: EOMI Ears: Normal External Exam Nose: Normal Inspection Throat/Mouth: Normal Inspection Head: Atraumatic, Normocephalic Neck: Normal Inspection Respiratory/Chest: No Respiratory Distress, Lungs Clear, Decreased Breath Sounds. No: Chest Non-Tender (left lower lateral), Crackles, Rales, Rhonchi Cardiovascular: Normal Peripheral Pulses, Regular Rate, Rhythm GI/Abdominal: Normal Bowel Sounds, Soft Back Exam: Normal Inspection, Full Range of Motion Extremities: Normal Inspection Psychiatric: Normal Affect, Normal Mood Skin Exam: Warm, Dry, Intact, Normal Color Course - Vital Signs Last Recorded V/S: Last Vital Signs Temp 97.8 F 10/07/19 20:38 Pulse 72 10/07/19 20:38 Resp 18 10/07/19 20:38 BP 171/88 H 10/07/19 20:38 Pulse Ox 97 10/07/19 20:38 - Orders/Labs/Meds Orders: Active Orders 24 hr Category Date Time Status Ribs 2V w Chest Lt [CR] Urgent Exams 10/07/19 20:47 Taken Meds: Medications Discontinued Medications Generic Name Dose Route Start Last Admin Trade Name Freq PRN Reason Stop Dose Admin Hydrocodone Bitart/Acetaminophen 1 tab 10/07/19 21:27 10/07/19 21:40 [place] 325-10 Mg PO 10/07/19 21:28 1 tab ONETIME ONE Administration Hydrocodone Bitart/Acetaminophen Confirm 10/07/19 21:45 10/07/19 21:50 [place] 325-10 Mg Administered 10/07/19 21:46 Not Given Dose 2 tab .ROUTE .STK-MED ONE - Radiology Interpretation Free Text/Narrative:: xray, fx left 8th rib Departure - Departure Time of Disposition: 21:30 Disposition: Home, Self-Care 01 Condition: Good Clinical Impression: Left rib fracture Qualifiers: Encounter type: initial encounter Rib fracture type: single rib Fracture type: closed Qualified Code(s): S22.32XA - Fracture of one rib, left side, initial encounter for closed fracture - Discharge Information *PRESCRIPTION DRUG MONITORING PROGRAM REVIEWED*: No *COPY OF PRESCRIPTION DRUG MONITORING REPORT IN PATIENT [facility]: No Instructions: Rib Fracture Forms: ED Department Discharge Additional Instructions: deep breathing exercises splint ribs with coughing sneezingf mild to moderate pain ibuprofen 600mg every 6 hours as needed severe pain Hydrocodone 10/325 one every 6 hours as needed Incentive Spirometer Sepsis Event Note - Evaluation Sepsis Screening Result: No Definite Risk - Focused Exam Vital Signs: Vital Signs Temp Pulse Resp BP Pulse Ox 10/07/19 20:38 97.8 F 72 18 171/88 H 97 Date Exam was Performed: 10/08/19 Time Exam was Performed: 06:35 - My Orders Last 24 Hours: My Active Orders 10/07/19 20:47 Ribs 2V w Chest Lt [CR] Urgent - Assessment/Plan Last 24 Hours: My Active Orders 10/07/19 20:47 Ribs 2V w Chest Lt [CR] Urgent
[2019-10-07] MEDS ORDERED: Acetaminophen/HYDROcodone 325-10 MG Tab ONE (21:45)
== END 2019-10-07 21:49 | disposition home or self-care (01) ==
LOC: DL.ED 20:14
DX: S22.32XA Fracture of one rib, left side, initial encounter for closed fracture (principal); K21.9 Gastro-esophageal reflux disease without esophagitis; F32.9 Major depressive disorder, single episode, unspecified; R56.9 Unspecified convulsions; Z88.1 Allergy status to other antibiotic agents; Z79.899 Other long term (current) drug therapy; W01.0XXA Fall on same level from slipping, tripping and stumbling without subsequent striking against object, initial encounter; Y93.89 Activity, other specified
CPT/HCPCS: 71101; 99283; A9270

== ENCOUNTER 2019-10-24 15:40 | Emergency (ER) | payer MEDICAID, OTHER ==
[2019-10-24 16:21] VITALS: BP 121/57; PULSE 87
[2019-10-24 17:04] LABS: ANION GAP 11.8; CHLORIDE,CL 101 mmol/L (101-111); SODIUM,NA 134 mmol/L (135-145)
--- NOTE | 2019-10-24 17:10 | CR ---
EXAMINATION: Chest 2V SEX: Female AGE: 44 years CLINICAL HISTORY: 44-year-old female complaining of chest and rib pain. INTERPRETATION: 1. Naheed thorax unremarkable and unchanged since recent rib detail films left chest (29 September 2019) 2. No sign of pathologic skeletal lesion, acute rib fracture, lung contusion, atelectasis, pleural effusion or pneumothorax. 3. Normal cardiac silhouette. No pulmonary vascular congestion, cephalization of flow, alveolar edema or pleural effusion. 4. No new lung mass, hilar lymphadenopathy or focal lobar pneumonia. 5. No atelectasis/collapse. No free subdiaphragmatic air. CONCLUSION: Negative exam.
--- NOTE | 2019-10-24 17:25 | EDM.PDOC ---
ED HPI GENERAL MEDICAL PROBLEM - General Chief Complaint: Chest Pain Stated Complaint: BACK AND CHEST PAIN Time Seen by Provider: 10/24/19 16:35 Source of Information: Reports: Patient, Family, RN, RN Notes Reviewed History Limitations: Reports: No Limitations - History of Present Illness INITIAL COMMENTS - FREE TEXT/NARRATIVE: Patient presents to ER with complaint of pain in the chest and the back. Patient states about a week ago she tripped over her dog's chain and fell, fracturing ribs. Patient states she has developed a cough, and has pain with coughing. Patient denies any new trauma, denies fever or chills, denies N/V/D. Onset: Gradual - Related Data Allergies Allergy/AdvReac Type Severity Reaction Status Date / Time cephalexin [From Keflex] Allergy Hives Verified 10/07/19 20:43 sulfamethoxazole Allergy Hives Verified 10/07/19 20:43 [From Bactrim] trimethoprim [From Bactrim] Allergy Hives Verified 10/07/19 20:43 Home Meds: Home Meds Gabapentin [Neurontin] 800 mg PO TID 10/08/16 [History] Acetaminophen 650 mg PO ASDIRECTED 03/18/18 [History] Ibuprofen [Motrin] 600 mg PO ASDIRECTED PRN 03/18/18 [History] Multivitamin [Multi-Vitamin Daily] 1 tab PO DAILY 03/18/18 [History] Pantoprazole [ProTONIX] 40 mg PO DAILY 03/18/18 [History] QUEtiapine [SEROquel] 100 mg PO BEDTIME 03/18/18 [History] Past Medical History - Past Health History Medical/Surgical History: Denies Medical/Surgical History HEENT History: Reports: None Cardiovascular History: Reports: None Respiratory History: Reports: None Gastrointestinal History: Reports: GERD Genitourinary History: Reports: None 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: Musculoskeletal History: Reports: Back Pain, Chronic, Other (See Below) Other Musculoskeletal History: herniated disk Neurological History: Reports: Seizure Psychiatric History: Reports: Addiction, Anxiety, Depression Endocrine/Metabolic History: Reports: None Hematologic History: Reports: None Immunologic History: Reports: None Oncologic (Cancer) History: Reports: Cervix Dermatologic History: Reports: None - Infectious Disease History Infectious Disease History: Reports: Chicken Pox - Past Surgical History Head Surgeries/Procedures: Reports: None HEENT Surgical History: Reports: None Cardiovascular Surgical History: Reports: None Respiratory Surgical History: Reports: None GI Surgical History: Reports: None Female Surgical History: Reports: Section, Hysterectomy Endocrine Surgical History: Reports: None Neurological Surgical History: Reports: None Musculoskeletal Surgical History: Reports: Other (See Below) Other Musculoskeletal Surgeries/Procedures:: surgery on both feet Oncologic Surgical History: Reports: None Dermatological Surgical History: Reports: None Social & Family History - Family History Family Medical History: Noncontributory Neurological: Reports: Seizure - Tobacco Use Smoking Status *Q: Current Some Day Smoker Years of Tobacco use: 30 Packs/Tins Daily: 0.2 - Caffeine Use Caffeine Use: Reports: None Other Caffeine Use: AVERAGE OF 2 CUPS DAILY - Recreational Drug Use Recreational Drug Use: No - Sexual History Sexual History: Reports: Sexually Active - Living Situation & Occupation Living situation: Reports: with Significant Other Occupation: Unemployed ED ROS GENERAL - Review of Systems Review Of Systems: Comprehensive ROS is negative, except as noted in HPI. ED EXAM, GENERAL - Physical Exam Exam: See Below Exam Limited By: No Limitations General Appearance: Alert, WD/WN, Anxious, Mild Distress Eye Exam: Bilateral Eye: EOMI, Normal Inspection Ears: Normal External Exam, Hearing Grossly Normal Nose: Normal Inspection Throat/Mouth: Normal Inspection, Normal Voice, No Airway Compromise Head: Atraumatic, Normocephalic Neck: Normal Inspection, Supple, Non-Tender, Full Range of Motion Respiratory/Chest: No Respiratory Distress, Lungs Clear, Decreased Breath Sounds Cardiovascular: Normal Peripheral Pulses, Regular Rate, Rhythm, No Edema, No Gallop, No JVD, No Murmur, No Rub Peripheral Pulses: 2+: Radial (L), Radial (R) GI/Abdominal: Normal Bowel Sounds, Soft, Non-Tender (Female) Exam: Deferred Rectal (Female) Exam: Deferred Back Exam: Normal Inspection, Decreased Range of Motion Extremities: Normal Inspection, Normal Range of Motion, Non-Tender, Normal Capillary Refill, No Pedal Edema Neurological: Alert, Oriented, CN II-XII Intact, Normal Cognition, Normal Gait, Normal Reflexes, No Motor/Sensory Deficits Psychiatric: Anxious, Tearful Skin Exam: Warm, Dry, Intact, Normal Color, No Rash Lymphatic: No Adenopathy Course - Vital Signs Last Recorded V/S: Last Vital Signs Temp 98.1 F 10/24/19 16:19 Pulse 87 10/24/19 16:19 Resp 16 10/24/19 16:19 BP 121/57 L 10/24/19 16:19 Pulse Ox 99 10/24/19 16:19 - Orders/Labs/Meds Labs: Laboratory Tests 10/24/19 10/24/19 Range/Units 16:35 16:35 WBC 4.5 L (5.0-10.0) 10^3/uL RBC 4.14 L (4.2-5.4) 10^6/uL Hgb 11.5 L (12.0-16.0) g/dL Hct 35.4 L (37.0-47.0) % MCV 85.5 (80-100) fL MCH 27.8 (27.0-34.0) pg MCHC 32.5 L (33.0-35.0) g/dL Plt Count 254 (150-450) 10^3/uL Neut % (Auto) 37.9 L (42.2-75.2) % Lymph % (Auto) 45.5 (20.5-50.1) % [place] % (Auto) 12.4 H (2-8) % Eos % (Auto) 4.0 H (1.0-3.0) % Baso % (Auto) 0.2 (0.0-1.0) % Sodium 134 L (135-145) mmol/L Potassium 3.8 (3.6-5.0) mmol/L Chloride 101 (101-111) mmol/L Carbon Dioxide 25.0 (21.0-31.0) mmol/L Anion Gap 11.8 BUN 11 (7-18) mg/dL Creatinine 0.6 (0.6-1.3) mg/dL Est Cr Clr Drug Dosing TNP Estimated GFR (MDRD) > 60 BUN/Creatinine Ratio 18.33 Glucose 93 (74-105) mg/dL Calcium 8.8 (8.4-10.2) mg/dl Total Bilirubin 0.3 (0.2-1.0) mg/dL AST 19 (10-42) IU/L ALT 14 (10-60) IU/L Alkaline Phosphatase 72 (42-121) IU/L Troponin I < 0.02 (0.00-0.02) ng/ml Total Protein 7.4 (6.7-8.2) g/dl Albumin 3.9 (3.2-5.5) g/dl Globulin 3.5 Albumin/Globulin Ratio 1.11 Amylase 63 (28-100) U/L Lipase 40 (22-51) U/L - Radiology Interpretation Free Text/Narrative:: Chest xray: 1. Bony thorax is unremarkable and unchanged since recent rib detail films left chest September 29, 2019 2. No sign of pathologic skeletal lesion, acute rib fracture, lung contusion, atelectasis, pleural effusion or pneumothorax. 3. Normal cardiac silhouette. No pulmonary vascular congestion, cephalization of flow, alveolar edemeural effusion. 4. No new lung mass, hilar lymphadenopathy or focal lobar pneumonia. 5. No atelectasis/collapse. No free subdiaphragmatic air. Conclusion: Negative exam See rad report Departure - Departure Time of Disposition: 17:19 Disposition: Home, Self-Care 01 Reason for Transfer *Q: Other Condition: Fair Clinical Impression: Atypical chest pain Upper respiratory infection Qualifiers: URI type: unspecified viral URI Qualified Code(s): J06.9 - Acute upper respiratory infection, unspecified Left rib fracture Qualifiers: Encounter type: initial encounter Rib fracture type: single rib Fracture type: closed Qualified Code(s): S22.32XA - Fracture of one rib, left side, initial encounter for closed fracture Instructions: Chest Wall Pain, [id number], Nonspecific Chest Pain, Easy-to- Read, Rib Fracture, [id number] Forms: ED Department Discharge Additional Instructions: May use Tylenol and/or Ibuprofen as directed for pain May use over the counter Robitussin for cough May use heat to the area as tolerated Cough and deep breathe as often as possible Follow up with your primary care facility Sepsis Event Note - Evaluation Sepsis Screening Result: No Definite Risk - Focused Exam Date Exam was Performed: 10/29/19 Time Exam was Performed: 01:26
== END 2019-10-24 17:40 | disposition home or self-care (01) ==
LOC: DL.ED 15:40
DX: S22.32XA Fracture of one rib, left side, initial encounter for closed fracture (principal); J06.9 Acute upper respiratory infection, unspecified; R07.89 Other chest pain; K21.9 Gastro-esophageal reflux disease without esophagitis; F32.9 Major depressive disorder, single episode, unspecified; F17.210 Nicotine dependence, cigarettes, uncomplicated; Z88.1 Allergy status to other antibiotic agents; Z79.899 Other long term (current) drug therapy; W01.0XXA Fall on same level from slipping, tripping and stumbling without subsequent striking against object, initial encounter
CPT/HCPCS: 36415; 71046; 80053; 82150; 83690; 84484; 85025; 93005; 99285-25

== ENCOUNTER 2019-11-05 09:05 | Emergency (ER) | payer MEDICAID, OTHER ==
[2019-11-05 09:17] VITALS: BP 153/80; PULSE 69
--- NOTE | 2019-11-05 09:35 | EDM.PDOC ---
ED HPI GENERAL MEDICAL PROBLEM - General Chief Complaint: Respiratory Problem Stated Complaint: THROAT HURST COUGH Time Seen by Provider: 11/05/19 09:25 Source of Information: Reports: Patient History Limitations: Reports: No Limitations - History of Present Illness INITIAL COMMENTS - FREE TEXT/NARRATIVE: This 44 yo female patient reports to the ED with a 2 day history of a sore throat and a cough. The patient reports she took ibuprofen this morning, but has been taking DayQuil over the past couple of days. The patient reports she has been treated for pneumonia over the past month and was also given an injection of steroids to boost her immune system. The patient reports she attempted to get into the [facility], but was advised that there were no appointments available. The patient reports she got sick from her . Onset Date: 11/03/19 Duration: Constant, Getting Worse Location: Reports: Neck, Chest Quality: Reports: Ache, Dull Severity: Moderate Improves with: Reports: Medication Worsens with: Reports: None Context: Reports: Other Associated Symptoms: Reports: Cough, Fever/Chills (subjective), Other (sore throat) Treatments ICER MACHINE: Reports: NSAIDS, Other (see below) Other Treatments ICER MACHINE: dayquil - Related Data Allergies Allergy/AdvReac Type Severity Reaction Status Date / Time cephalexin [From Keflex] Allergy Hives Verified 11/05/19 09:22 sulfamethoxazole Allergy Hives Verified 11/05/19 09:22 [From Bactrim] trimethoprim [From Bactrim] Allergy Hives Verified 11/05/19 09:22 Home Meds: Home Meds Acetaminophen 650 mg PO ASDIRECTED 03/18/18 [History] Ibuprofen [Motrin] 600 mg PO ASDIRECTED PRN 03/18/18 [History] Multivitamin [Multi-Vitamin Daily] 1 tab PO DAILY 03/18/18 [History] Pantoprazole [ProTONIX] 40 mg PO DAILY 03/18/18 [History] QUEtiapine [SEROquel] 100 mg PO BEDTIME 03/18/18 [History] buPROPion [Wellbutrin] 300 mg PO DAILY 11/05/19 [History] Past Medical History - Past Health History Medical/Surgical History: Denies Medical/Surgical History HEENT History: Reports: None Cardiovascular History: Reports: None Respiratory History: Reports: None Gastrointestinal History: Reports: GERD Genitourinary History: Reports: None DIRECTOR RETIREMENT History: Reports: Musculoskeletal History: Reports: Back Pain, Chronic, Other (See Below) Other Musculoskeletal History: herniated disk Neurological History: Reports: Seizure Psychiatric History: Reports: Addiction, Anxiety, Depression Other Psychiatric History: pt uses soboxone, has been for 2 years Endocrine/Metabolic History: Reports: None Hematologic History: Reports: None Immunologic History: Reports: None Oncologic (Cancer) History: Reports: Cervix Dermatologic History: Reports: None - Infectious Disease History Infectious Disease History: Reports: Chicken Pox - Past Surgical History Head Surgeries/Procedures: Reports: None HEENT Surgical History: Reports: None Cardiovascular Surgical History: Reports: None Respiratory Surgical History: Reports: None GI Surgical History: Reports: None Female Surgical History: Reports: Section, Hysterectomy Endocrine Surgical History: Reports: None Neurological Surgical History: Reports: None Musculoskeletal Surgical History: Reports: Other (See Below) Other Musculoskeletal Surgeries/Procedures:: surgery on both feet Oncologic Surgical History: Reports: None Dermatological Surgical History: Reports: None Social & Family History - Family History Family Medical History: Noncontributory Neurological: Reports: Seizure - Caffeine Use Caffeine Use: Reports: None Other Caffeine Use: AVERAGE OF 2 CUPS DAILY - Sexual History Sexual History: Reports: Sexually Active - Living Situation & Occupation Living situation: Reports: with Significant Other Occupation: Unemployed ED ROS GENERAL - Review of Systems Review Of Systems: Comprehensive ROS is negative, except as noted in HPI. ED EXAM, GENERAL - Physical Exam Exam: See Below Exam Limited By: No Limitations General Appearance: Alert, WD/WN, Mild Distress Eye Exam: Bilateral Eye: EOMI, Normal Inspection, PERRL Ears: Normal External Exam, Normal Canal, Hearing Grossly Normal, Normal TMs Nose: Normal Inspection, Normal Mucosa, No Blood Throat/Mouth: Normal Lips, Normal Teeth, Normal Gums, Inflammation (posterior pharynx) Head: Atraumatic, Normocephalic Neck: Normal Inspection, Supple, Non-Tender, Full Range of Motion Respiratory/Chest: No Respiratory Distress, Lungs Clear, Normal Breath Sounds, No Accessory Muscle Use, Chest Non-Tender Cardiovascular: Normal Peripheral Pulses, Regular Rate, Rhythm, No Edema, No Gallop, No JVD, No Murmur, No Rub GI/Abdominal: Normal Bowel Sounds, Soft, Non-Tender, No Organomegaly, No Distention, No Abnormal Bruit, No Mass (Female) Exam: Deferred Rectal (Female) Exam: Deferred Back Exam: Normal Inspection, Full Range of Motion, NT Extremities: Normal Inspection, Normal Range of Motion, Non-Tender, Normal Capillary Refill, No Pedal Edema Neurological: Alert, Oriented, CN II-XII Intact, Normal Cognition, Normal Gait, Normal Reflexes, No Motor/Sensory Deficits Psychiatric: Normal Affect, Normal Mood Skin Exam: Warm, Dry, Intact, Normal Color, No Rash Lymphatic: No Adenopathy Course - Vital Signs Last Recorded V/S: Last Vital Signs Temp 36.3 C 11/05/19 09:17 Pulse 69 11/05/19 09:17 Resp 18 11/05/19 09:17 BP 153/80 H 11/05/19 09:17 Pulse Ox 100 11/05/19 09:17 - Orders/Labs/Meds Orders: Active Orders 24 hr Category Date Time Status CMP [COMPREHENSIVE METABOLIC PN,CMP] [CHEM] Stat Lab 11/05/19 09:52 Ordered CULTURE STREP A CONFIRMATION [RM] Stat Lab 11/05/19 09:16 Results STREP SCRN A RAPID W CULT CONF [RM] Stat Lab 11/05/19 09:24 Ordered Labs: Laboratory Tests 11/05/19 Range/Units 10:05 WBC 9.8 (5.0-10.0) 10^3/uL RBC 4.68 (4.2-5.4) 10^6/uL Hgb 12.9 (12.0-16.0) g/dL Hct 39.0 (37.0-47.0) % MCV 83.3 (80-100) fL MCH 27.6 (27.0-34.0) pg MCHC 33.1 (33.0-35.0) g/dL Plt Count 257 (150-450) 10^3/uL Neut % (Auto) 66.0 (42.2-75.2) % Lymph % (Auto) 21.6 (20.5-50.1) % [place] % (Auto) 10.6 H (2-8) % Eos % (Auto) 1.7 (1.0-3.0) % Baso % (Auto) 0.1 (0.0-1.0) % - Re-Assessments/Exams Free Text/Narrative Re-Assessment/Exam: 11/05/19 09:53 The patient was advised of the negative strep and negative influenza results. A CBC/CMP was ordered. Departure - Departure Time of Disposition: 10:29 Disposition: Home, Self-Care 01 Condition: Fair Clinical Impression: Viral URI with cough - Discharge Information *PRESCRIPTION DRUG MONITORING PROGRAM REVIEWED*: Not Applicable *COPY OF PRESCRIPTION DRUG MONITORING REPORT IN PATIENT [facility]: Not Applicable Instructions: Viral Respiratory Infection, [id number], Cough, Adult, Easy-to- Read Forms: ED Department Discharge Care Plan Goals: The patient was advised of the examination and lab results during the visit. The patient was encouraged to continue to use [id number] medications for temporary symptom relief. If the patient has any additional symptoms or concerns , the patient should either return to the emergency department or visit her primary care facility. Sepsis Event Note - Evaluation Sepsis Screening Result: No Definite Risk - Focused Exam Vital Signs: Vital Signs Temp Pulse Resp BP Pulse Ox 11/05/19 09:17 36.3 C 69 18 153/80 H 100 Date Exam was Performed: 11/05/19 Time Exam was Performed: 10:29 - My Orders Last 24 Hours: My Active Orders 11/05/19 09:16 CULTURE STREP A CONFIRMATION [RM] Stat 11/05/19 09:24 STREP SCRN A RAPID W CULT CONF [RM] Stat 11/05/19 09:52 CMP [COMPREHENSIVE METABOLIC PN,CMP] [CHEM] Stat - Assessment/Plan Last 24 Hours: My Active Orders 11/05/19 09:16 CULTURE STREP A CONFIRMATION [RM] Stat 11/05/19 09:24 STREP SCRN A RAPID W CULT CONF [RM] Stat 11/05/19 09:52 CMP [COMPREHENSIVE METABOLIC PN,CMP] [CHEM] Stat
[2019-11-05 10:33] LABS: ANION GAP 10.1; CHLORIDE,CL 103 mmol/L (101-111); SODIUM,NA 136 mmol/L (135-145)
== END 2019-11-05 10:42 | disposition home or self-care (01) ==
LOC: DL.ED 09:05
DX: J06.9 Acute upper respiratory infection, unspecified (principal); K21.9 Gastro-esophageal reflux disease without esophagitis; F32.9 Major depressive disorder, single episode, unspecified; Z88.2 Allergy status to sulfonamides; Z88.1 Allergy status to other antibiotic agents; Z79.899 Other long term (current) drug therapy
CPT/HCPCS: 36415; 80053; 85025; 87081; 87430; 87804; 99283

== ENCOUNTER 2020-02-06 17:51 | Emergency (ER) | payer MEDICAID ==
[2020-02-06 18:21] VITALS: BP 148/78; PULSE 64
--- NOTE | 2020-02-06 18:24 | EDM.PDOC ---
ED HPI GENERAL MEDICAL PROBLEM - General Chief Complaint: Chest Pain Stated Complaint: PAIN&BUMP ON THE RIGHT SIDE OF CHEST PER PT Time Seen by Provider: 02/06/20 18:15 Source of Information: Reports: Patient History Limitations: Reports: No Limitations - History of Present Illness INITIAL COMMENTS - FREE TEXT/NARRATIVE: This 44 yo female patient reports to the ED with pain and a lump to her right anterior chest. The patient reports her pain started about 2 hours prior to presentation to the ED. The patient reports she took over the counter medication (Tylenol) with no symptom relief. The patient reports she was mowing the lawn yesterday, but does not remember any specific injury to that area. Onset: Today Duration: Hour(s): (2), Constant Location: Reports: Chest (right anterior) Quality: Reports: Ache, Dull Severity: Moderate Improves with: Reports: None Worsens with: Reports: None Context: Reports: Other Associated Symptoms: Reports: No Other Symptoms Treatments REVIEW TRAINER: Reports: Acetaminophen - Related Data Allergies Allergy/AdvReac Type Severity Reaction Status Date / Time No Known Allergies Allergy Verified 02/06/20 18:08 Home Meds: Home Meds Acetaminophen 650 mg PO ASDIRECTED PRN 03/18/18 [History] Ibuprofen [Motrin] 600 mg PO ASDIRECTED PRN 03/18/18 [History] Multivitamin [Multi-Vitamin Daily] 1 tab PO DAILY 03/18/18 [History] Pantoprazole [ProTONIX] 40 mg PO DAILY 03/18/18 [History] QUEtiapine [SEROquel] 100 mg PO BEDTIME 03/18/18 [History] buPROPion [Wellbutrin] 300 mg PO DAILY 11/05/19 [History] Past Medical History - Past Health History Medical/Surgical History: Denies Medical/Surgical History HEENT History: Reports: None Cardiovascular History: Reports: None Respiratory History: Reports: None Gastrointestinal History: Reports: GERD Genitourinary History: Reports: None 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 TECH 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: Musculoskeletal History: Reports: Back Pain, Chronic, Other (See Below) Other Musculoskeletal History: herniated disk Neurological History: Reports: Seizure Psychiatric History: Reports: Addiction, Anxiety, Depression Other Psychiatric History: pt uses soboxone, has been for 2 years Endocrine/Metabolic History: Reports: None Hematologic History: Reports: None Immunologic History: Reports: None Oncologic (Cancer) History: Reports: Cervix Dermatologic History: Reports: None - Infectious Disease History Infectious Disease History: Reports: Chicken Pox - Past Surgical History Head Surgeries/Procedures: Reports: None HEENT Surgical History: Reports: None Cardiovascular Surgical History: Reports: None Respiratory Surgical History: Reports: None GI Surgical History: Reports: None Female Surgical History: Reports: Section, Hysterectomy Endocrine Surgical History: Reports: None Neurological Surgical History: Reports: None Musculoskeletal Surgical History: Reports: Other (See Below) Other Musculoskeletal Surgeries/Procedures:: surgery on both feet Oncologic Surgical History: Reports: None Dermatological Surgical History: Reports: None Social & Family History - Family History Family Medical History: Noncontributory Neurological: Reports: Seizure - Caffeine Use Caffeine Use: Reports: None Other Caffeine Use: AVERAGE OF 2 CUPS DAILY - Sexual History Sexual History: Reports: Sexually Active - Living Situation & Occupation Living situation: Reports: with Significant Other Occupation: Unemployed ED ROS GENERAL - Review of Systems Review Of Systems: Comprehensive ROS is negative, except as noted in HPI. ED EXAM, GENERAL - Physical Exam Exam: See Below Exam Limited By: No Limitations General Appearance: Alert, WD/WN, Mild Distress, Thin Eye Exam: Bilateral Eye: EOMI, Normal Inspection, PERRL Ears: Normal External Exam, Normal Canal, Hearing Grossly Normal, Normal TMs Nose: Normal Inspection, Normal Mucosa, No Blood Throat/Mouth: Normal Inspection Head: Atraumatic, Normocephalic Neck: Normal Inspection, Supple, Non-Tender, Full Range of Motion Respiratory/Chest: No Respiratory Distress, Lungs Clear, Normal Breath Sounds, No Accessory Muscle Use, Other (Tenderness to the right anterior chest wall near the upper medial pectoral musculature wth palpation.) Cardiovascular: Normal Peripheral Pulses, Regular Rate, Rhythm, No Edema, No Gallop, No JVD, No Murmur, No Rub GI/Abdominal: Normal Bowel Sounds (Female) Exam: Deferred Rectal (Female) Exam: Deferred Back Exam: Normal Inspection Extremities: Normal Inspection, Normal Range of Motion, Non-Tender, Normal Capillary Refill, No Pedal Edema Neurological: Alert, Oriented, CN II-XII Intact, Normal Cognition, Normal Gait, Normal Reflexes, No Motor/Sensory Deficits Psychiatric: Normal Affect, Normal Mood Skin Exam: Warm, Dry, Intact, Normal Color, No Rash Lymphatic: No Adenopathy Departure - Departure Time of Disposition: 18:22 Disposition: Home, Self-Care 01 Condition: Fair Clinical Impression: Chest wall muscle strain Qualifiers: Encounter type: initial encounter Qualified Code(s): S29.011A - Strain of muscle and tendon of front wall of thorax, initial encounter - Discharge Information *PRESCRIPTION DRUG MONITORING PROGRAM REVIEWED*: Not Applicable *COPY OF PRESCRIPTION DRUG MONITORING REPORT IN PATIENT [facility]: Not Applicable Instructions: Muscle Strain, [id number] Care Plan Goals: The patient was advised of the examination results during the visit. The patient was encouraged to rest and ice the area over the next 24 hours then she may use heat. The patient may take over the counter medications (Tylenol or ibuprofen) as directed for temporary symptom relief. If the patient has any additional symptoms or concerns, the patient should either visit her primary care facility or return to the emergency department.
== END 2020-02-06 18:29 | disposition home or self-care (01) ==
LOC: DL.ED 17:51
DX: S29.011A Strain of muscle and tendon of front wall of thorax, initial encounter (principal); K21.9 Gastro-esophageal reflux disease without esophagitis; F41.9 Anxiety disorder, unspecified; F32.9 Major depressive disorder, single episode, unspecified; Z79.899 Other long term (current) drug therapy; X58.XXXA Exposure to other specified factors, initial encounter
CPT/HCPCS: 99284

== ENCOUNTER 2022-02-04 12:23 | Emergency (ER) | payer MEDICAID ==
[2022-02-04] MEDS ORDERED: Benzonatate 100 MG Cap PO ONE (12:24)
[2022-02-04 12:44] VITALS: BP 163/95; PULSE 69
[2022-02-04 13:17] LABS: ANION GAP 12.5 mEq/L (7-13)
[2022-02-04 14:11] LABS: RESPIRATORY SYNCYTIAL VIR NAA NEGATIVE (NEGATIVE)
[2022-02-04 14:15] LABS: CORONAVIRUS COVID-19 NAA POSITIVE (NEGATIVE)
[2022-02-04] MEDS ORDERED: Benzonatate 100 MG Cap ONE (14:26)
== END 2022-02-04 14:27 | disposition home or self-care (01) ==
LOC: DL.ED 12:23
DX: U07.1 COVID-19 (principal); Z88.8 Allergy status to other drugs, medicaments and biological substances
CPT/HCPCS: 0241U; 36415; 71045; 80053; 82150; 83605; 83690; 83880; 84484; 85025; 86140; 93005; 99285; A9270-GY

== ENCOUNTER 2022-11-13 21:50 | Emergency (ER) | payer MEDICAID, BC ==
[2022-11-13] MEDS ORDERED: Ketorolac 10 MG Tab PO ONE (21:51)
[2022-11-13 22:10] VITALS: BP 151/98; PULSE 65
[2022-11-13 22:33] LABS: AMPHETAMINES,URINE NEGATIVE (NEGATIVE); BARBITURATES,URINE NEGATIVE (NEGATIVE); BENZODIAZEPINE,URINE NEGATIVE (NEGATIVE); MDMA (ECSTASY), URINE NEGATIVE (NEGATIVE); METHADONE,URINE NEGATIVE (NEGATIVE); METHAMPHETAMINES,URINE NEGATIVE (NEGATIVE); OPIATES,URINE NEGATIVE (NEGATIVE); OXYCODONE,URINE NEGATIVE (NEGATIVE); PHENCYCLIDINE,URINE NEGATIVE (NEGATIVE); TCA,URINE NEGATIVE (NEGATIVE)
[2022-11-13] MEDS ORDERED: Orphenadrine 60 MG/2 ML Inj IM ONE (22:56)
[2022-11-13] MEDS ORDERED: Ketorolac 30 MG/ML SDV IM ONE (22:59)
[2022-11-14] MEDS ORDERED: Ketorolac 10 MG Tab ONE (00:11)
== END 2022-11-14 00:14 | disposition home or self-care (01) ==
LOC: DL.ED 21:50
DX: M77.9 Enthesopathy, unspecified (principal); M54.9 Dorsalgia, unspecified; M62.830 Muscle spasm of back; I10 Essential (primary) hypertension; Z88.8 Allergy status to other drugs, medicaments and biological substances
CPT/HCPCS: 72072; 80305-QW; 81003; 96372; 99283; 99284; A9270-GY; J1885; J2360